=== PATIENT | female | born 1935 | race Caucasian/White ===

== ENCOUNTER 2017-05-17 14:25 | Outpatient (CLI) | payer MEDICARE ==
--- NOTE | 2017-05-17 16:23 | ULT ---
LEFT LOWER EXTREMITY VENOUS ULTRASOUND WITH DOPPLER: HISTORY: Swelling. COMPARISON: None. TECHNIQUE: Bruner scale, color flow, Doppler imaging, with spectral waveform analysis of the left lower extremity system. FINDINGS: There is compressibility, presence of flow, and augmentation in the common femoral vein, femoral vein , and popliteal vein. There is flow in the greater saphenous vein, profunda vein, and percutaneous t ransluminal angioplasty. IMPRESSION: No evidence of thrombus in the left lower extremity deep venous system. POS: [facility]
== END 2017-05-17 14:26 | disposition home or self-care (01) ==
LOC: ULT 14:25
PROVIDERS: ATTEND Specialist
DX: I73.9 Peripheral vascular disease, unspecified (principal)

== ENCOUNTER 2017-06-11 03:14 | Inpatient (IN) | payer MEDICARE ==
[2017-06-11 04:59] LABS: #Eosinphils 0.1 thou/uL (0.0-0.7); #Lymphocytes 1.1 thou/uL (1.20-3.40); #Monocytes 0.8 thou/uL (0.11-0.59); #Neutrophils 3.8 thou/uL (1.40-6.50); %Basophils 0.3 % (0.0-1.0); %Eosinophils 1.3 % (0.0-10.0); %Lymphocytes 19.6 % (21.0-51.0); %Monocytes 13.4 % (0.0-10.0); %Neutrophils 65.5 % (42.0-75.0); Hemoglobin 12.7 g/dL (12.0-16.0); Mean Corpuscular HGB CONC 34.2 g/dL (32.0-36.0); Mean Corpuscular Volume 93.6 fl (81.0-99.0); Mean Platelet Volume 7.4 fL (7.4-10.4); Platelet Count 195 thou/uL (130-400); RBC Distribution Width 12.6 % (11.5-14.5); Red Blood Cell (RBC) Count 3.98 mill/uL (4.20-5.40); White Blood Cell (WBC) Count 5.8 thou/uL (4.8-10.8)
[2017-06-11 05:23] LABS: ALT (SGPT) 19 U/L (8-55); AST (SGOT) 39 U/L (5-34); Albumin 3.9 g/dL (3.4-4.8); Alkaline Phosphatase 61 U/L (40-150); Anion Gap 11 mmol/L (10-20); BUN (Urea Nitrogen) 14 mg/dL (9.8-20.1); Bilirubin, Total 0.4 mg/dL (0.2-1.2); Calc. Creatinine Clearance 0 mL/min (70-130); Calcium 9.3 mg/dL (7.8-10.44); Carbon Dioxide 24 mmol/L (23-31); Chloride 101 mmol/L (98-107); Estimated GFR-MDRD 60; Globulin 2.7 g/dL (2.4-3.5); Glucose 101 mg/dL (83-110); Potassium 4.1 mmol/L (3.5-5.1); Protein, Total 6.6 g/dL (6.0-8.3); Sodium 132 mmol/L (136-145)
[2017-06-11 06:06] LABS: CKMB 5.2 ng/mL (0-6.6); Troponin I 0.034 ng/mL (< 0.028)
[2017-06-11] MEDS ORDERED: Azithromycin 500 MG VIAL ONE (07:28)
[2017-06-11] MEDS ORDERED: Vancomycin HCl 1.25 GM, Admixture Fee 1 EACH in Sodium Chloride 0.9% 250 ML 250 ML IVPB SCH (07:45)
[2017-06-11 07:47] LABS: Troponin I 0.035 ng/mL (< 0.028)
--- NOTE | 2017-06-11 08:07 | RAD ---
FRONTAL VIEW CHEST: Date: 06/11/17 INDICATION: Emergency exam, cough, difficulty breathing. FINDINGS: Reference made to 05/25/16. Elevation of right hemidiaphragm is similar. Cardiac silhouette is prominent. There is mild engorgeme nt of pulmonary vasculature with interstitial prominence bilaterally. Vascular calcifications are pre sent. There are leads overlying the chest limiting detail. IMPRESSION: 1. CHF. 2. Persistent elevation of right hemidiaphragm. POS: [facility]
[2017-06-11] MEDS ORDERED: Ondansetron ODT 4 MG TAB PO PRN ×2 (08:25→12:38)
[2017-06-11] MEDS ORDERED: Ondansetron HCl/PF 4 MG/2 ML Vial IVP PRN (08:25)
[2017-06-11] MEDS ORDERED: Prevnar 13-Val Conj/PF 0.5 ML SYRINGE IM ONE (08:45)
[2017-06-11 08:50] VITALS: BMI 30.3
[2017-06-11 11:01] LABS: Troponin I 0.033 ng/mL (< 0.028)
[2017-06-11] MEDS ORDERED: Diphenoxylate HCl/Atropine Tablet PO PRN (12:13)
[2017-06-11] MEDS ORDERED: Meclizine HCl 12.5 MG TAB PO PRN (12:36)
[2017-06-11] MEDS: Benzonatate 100 MG CAP PO PRN ×2 (13:05→18:53)
--- NOTE | 2017-06-11 13:22 | HP ---
DATE OF ADMISSION: 06/11/2017 CHIEF COMPLAINT ON ADMISSION: Pneumonia. HISTORY OF PRESENT ILLNESS: The patient is an 82-year-old female with dementia, who normally stays a t the residential when was noted to have increasing cough. She was thought to have a sinus infectio n the previous week, so she was begun on a Z-Cesar; however, her cough has persisted. She has become p rogressively short of breath, and she was sent to the emergency room for further evaluation. Arrival in the ER, her pulse ox was 88%, and right after 1 DuoNeb treatment, she quickly zulema to 96%. She h as had a productive cough with green phlegm. Denies fever. She has diffuse pain, and has developed diarrhea, probably as a result of the azithromycin. In the emergency room, her chest x-ray revealed infiltrates leading the ER doctor to admit her under pneumonia. She also had some elevated troponins that was indeterminate in nature. She had recently fallen and scraped her leg, but seemed to be doi ng well with that. PAST MEDICAL HISTORY: Significant for hypothyroidism, hypertension, spinal fracture, wrist fracture, vertigo, dementia, hydrocephalus, GERD, atherosclerotic heart disease. PAST SURGICAL HISTORY: Her surgeries have included shunt placement for the hydrocephalous per Dr. Wilfred simon. ALLERGIES: Include PENICILLIN, KEFLEX, CODEINE and LEVAQUIN. CURRENT LIST OF MEDICATIONS: Include Zofran ODT p.r.n. nausea, Zocor 20 mg at bedtime, vitamin D 100 0 International Units daily, Nexium 40 mg daily, Namenda XR 28 mg daily, meclizine 12.5 mg p.r.n. sandra mckinney, fluticasone nasal spray daily, Aricept 5 mg daily, Colace 100 mg daily, melatonin 5 mg at bed time, sertraline 50 mg daily, levothyroxine 50 mcg daily, metoprolol tartrate 25 mg 1/2 tab b.i.d. REVIEW OF SYSTEMS: Generally, she denies chills or fever. HEENT: Negative for blurred vision, eye pain, or drainage. Nares, negative for discharge or drainage or blood. Pharynx, no sore throat. Ca rdiovascular: Denies chest pain or palpitations. Respiratory: Has significant cough and shortness of breath. Gastrointestinal: Has diarrhea, but denies nausea or vomiting. Genitourinary: Denies b lood in urine or painful urination. Musculoskeletal: Recent fall. Has bruising and pain in the lef t leg. Skin: With abrasion on the left leg, otherwise unremarkable. Neurological: Cranial nerves are intact. Unable to test gait and cerebellar function at this time. Denies areas of numbness or swelling. Lymphatics: Denies swelling, erythema, or heat. Skin: No n ew rashes or lesions, but does have the abrasion on left leg. PHYSICAL EXAMINATION: VITAL SIGNS: On admission, blood pressure 145/77, pulse 96, respirations 22, temperature 99. Pain s chanelle at 10/10 and O2 sat at 94% on 2 liters. GENERAL: This is an elderly female, alert, oriented, and cooperative. HEENT: Normocephalic and atraumatic. Pupils with arcus senilis bilaterally. Pupils equal, round, a nd reactive to light with 2 mm of reactivity, nares and pharynx are clear. There is poor trans[place] of the sinuses. NECK: Supple. CHEST: Clear to auscultation. HEART: Regular rate and rhythm without murmur. BREAST EXAM: Deferred. ABDOMEN: Soft, without organomegaly, nontender. : Deferred. EXTREMITIES: Without clubbing, cyanosis, or edema. Normal range of motion present. SKIN: With the abrasions on the left tobin, otherwise unremarkable. NEUROLOGICAL: Cranial nerves are intact. Gait and cerebellar function untested. Mental status show s recent memory deficits. LABORATORY AND X-RAY FINDINGS: Lab work on admission shows WBCs 5.8, hemoglobin 12.7, hematocrit 37. 2 with platelets at 195. Sodium 132, potassium 4.1, chloride at 101, CO2 of 24, BUN 14, creatinine 0 .9, glucose of 101. Cardiac enzymes are elevated x3, in the indeterminate range. BNP slightly eleva colin at 189. Chest x-ray shows elevated right hemidiaphragm (old) with possible posterior cardiac inf iltrate. Heart size appears enlarged. ASSESSMENT: 1. Early pneumonia and/or possible congestive heart failure. 2. Dementia. 3. Hypoxia secondary to pulmonic process. 4. Status post fall. PLAN: Will be to continue IV antibiotics, and serially reevaluate the patient, get an echocardiogram and reevaluate the patient regularly. We will also do DuoNeb treatments to aid in her oxygen transp ort.
[2017-06-11] MEDS: Fluticasone Propionate Nasal Spray 16 gm Bottle NASAL SCH (19:47)
[2017-06-11] MEDS: Melatonin 3 MG TAB PO SCH (19:48)
[2017-06-11] MEDS: guaiFENesin ER 600 MG TAB PO SCH (19:49)
[2017-06-11] MEDS: Metoprolol Tartrate 25 MG TAB PO SCH (19:49)
[2017-06-12] MEDS: Levothyroxine Sodium 50 MCG TAB PO SCH (05:23)
[2017-06-12 05:33] LABS: #Eosinphils 0.1 thou/uL (0.0-0.7); #Lymphocytes 1.1 thou/uL (1.20-3.40); #Monocytes 0.7 thou/uL (0.11-0.59); #Neutrophils 3.5 thou/uL (1.40-6.50); %Basophils 0.2 % (0.0-1.0); %Lymphocytes 20.6 % (21.0-51.0); %Neutrophils 65.2 % (42.0-75.0); Hemoglobin 12.1 g/dL (12.0-16.0); Mean Corpuscular Hemoglobin 31.9 pg (27.0-31.0); Mean Corpuscular Volume 96.6 fl (81.0-99.0); Mean Platelet Volume 7.9 fL (7.4-10.4); Platelet Count 185 thou/uL (130-400); RBC Distribution Width 12.7 % (11.5-14.5); White Blood Cell (WBC) Count 5.4 thou/uL (4.8-10.8)
[2017-06-12 05:54] LABS: Anion Gap 10 mmol/L (10-20); BUN (Urea Nitrogen) 10 mg/dL (9.8-20.1); Calc. Creatinine Clearance 68 mL/min (70-130); Carbon Dioxide 25 mmol/L (23-31); Chloride 100 mmol/L (98-107); Estimated GFR-MDRD 67; Glucose 102 mg/dL (83-110); Potassium 4.3 mmol/L (3.5-5.1); Sodium 131 mmol/L (136-145)
--- NOTE | 2017-06-12 08:33 | PRG ---
DATE OF SERVICE: 06/12/2017 SUBJECTIVE: The patient had a good night. She is on oxygen. She denies any complaints. Upon evalu ation she is awake, alert to person, place and time. There is no family here. PHYSICAL EXAMINATION: VITAL SIGNS: Blood pressure 130/60, pulse 80. She is afebrile. NECK: Supple, no increased JVP or carotid bruit. Carotid had good upstroke, no thyromegaly. COR: Regular rate and rhythm. CHEST: Symmetrical with bibasilar crackles. ABDOMEN: Soft, nontender with normoactive bowel sounds. No bruit or organomegaly. EXTREMITIES: Trace edema. She had palpable pedal pulses. SKIN: There is no evidence of ulcers, lesion or rash. NEUROLOGIC: She is awake, alert, and oriented to person, place, and time. LABORATORY DATA: Her CBC is normal. Her CMP shows sodium 131. ASSESSMENT: 1. Pneumonia. 2. Respiratory failure, improved. 3. Dementia. 4. History of hydrocephalus with a shunt. PLAN: 1. The patient will be continued the same current medication regime. 2. We will follow up with CBC, CMP and chest x-ray in the morning. 3. Encourage patient to get out of bed into the chair. The patient verbalized understanding. All questions answered to her satisfaction.
[2017-06-12] MEDS ORDERED: Vancomycin HCl 1 GM in Premix Bag 1 BAG IVPB SCH (09:00)
[2017-06-12] MEDS ORDERED: BIOTIN 5000 MCG PO SCH (09:00)
[2017-06-12 09:15] LABS: #Eosinphils 0.1 thou/uL (0.0-0.7); #Lymphocytes 0.9 thou/uL (1.20-3.40); #Monocytes 0.4 thou/uL (0.11-0.59); #Neutrophils 4.2 thou/uL (1.40-6.50); %Basophils 0.1 % (0.0-1.0); %Eosinophils 2.2 % (0.0-10.0); %Lymphocytes 15.5 % (21.0-51.0); %Monocytes 6.7 % (0.0-10.0); %Neutrophils 75.5 % (42.0-75.0); Hemoglobin 13.1 g/dL (12.0-16.0); Mean Corpuscular HGB CONC 34.1 g/dL (32.0-36.0); Mean Corpuscular Hemoglobin 32.3 pg (27.0-31.0); Mean Corpuscular Volume 94.7 fl (81.0-99.0); Mean Platelet Volume 7.4 fL (7.4-10.4); Platelet Count 181 thou/uL (130-400); RBC Distribution Width 12.6 % (11.5-14.5); Red Blood Cell (RBC) Count 4.07 mill/uL (4.20-5.40); White Blood Cell (WBC) Count 5.5 thou/uL (4.8-10.8)
[2017-06-12] MEDS: Azithromycin 500 MG in Sodium Chloride 0.9% 250 ML 250 ML IVPB SCH (09:20)
[2017-06-12] MEDS: Fluticasone Propionate Nasal Spray 16 gm Bottle NASAL SCH ×2 (09:24→20:58)
[2017-06-12] MEDS: Calcium Carbonate + Vit D 1 TAB PO SCH (09:25)
[2017-06-12] MEDS: Metoprolol Tartrate 25 MG TAB PO SCH ×2 (09:26→20:57)
[2017-06-12] MEDS: guaiFENesin ER 600 MG TAB PO SCH ×2 (09:27→20:57)
[2017-06-12] MEDS: Donepezil HCl 5 MG TAB PO SCH (09:27)
[2017-06-12 09:33] LABS: ALT (SGPT) 19 U/L (8-55); AST (SGOT) 45 U/L (5-34); Albumin 3.7 g/dL (3.4-4.8); Alkaline Phosphatase 58 U/L (40-150); Anion Gap 14 mmol/L (10-20); BUN (Urea Nitrogen) 9 mg/dL (9.8-20.1); Bilirubin, Total 0.4 mg/dL (0.2-1.2); Calc. Creatinine Clearance 68 mL/min (70-130); Calcium 9.2 mg/dL (7.8-10.44); Carbon Dioxide 21 mmol/L (23-31); Chloride 100 mmol/L (98-107); Estimated GFR-MDRD 67; Globulin 2.8 g/dL (2.4-3.5); Glucose 144 mg/dL (83-110); Protein, Total 6.5 g/dL (6.0-8.3); Sodium 131 mmol/L (136-145)
--- NOTE | 2017-06-12 11:02 | PQF ---
ANISHA SANTOS MICHAEL E MD [id number] [id number] CLINICAL DOCUMENTATION IMPROVEMENT CLARIFICATION FORM: ICD-10 Updated PLEASE DO AN ADDENDUM TO THE PROGRESS NOTE WITH ANY DOCUMENTATION UPDATES OR ADDITIONS AND CARRY THROUGH TO DC SUMMARY. THANK YOU. DATE: 06-12-17 ATTN: DR. VALERIE RODGERS/ SAGAR ROCHA Please exercise your independent, professional judgment in responding to the clarification form. Clinical indicators are provided on the bottom of this form for your review Please check appropriate box(s): [ ] Empirically treating Gram Negative Pneumonia [ ] Empirically treating Anaerobic Pneumonia [ ] Pneumonia secondary to (specify organism / underlying disease) ____ [ x ] Simple Pneumonia (community acquired - nosocomial) [ ] Pneumonia of unknown etiology [ x ] Other diagnosis ____Hypoxia, failed out patient treatment [ ] Unable to determine For continuity of documentation, please document condition throughout progress notes and discharge summary. Thank You. CLINICAL INDICATORS - SIGNS / SYMPTOMS / LABS ER PDX: PNA; ELEVATED TROPONIN; HYPOXIA H&P: ER PULSE OX 88% - 1 DUONEB TX - 96% - NOW 94% ON 2LNC SIGNIFICANT COUGH AND SHORTNESS OF BREATH PDX: EARLY PNA AND/OR CHF; HYPOXIA D/T PULMONIC PROCESS 4-2 CXR: ER: QUESTIONABLE INFILTRATE ON RETROCARDIAC REGION; QUESTIONABLE FOR PNA MILD ENGORGEMENT OF PULMONARY VASCULATURE W/ INTERSTITIAL PROMINENCE BILATERALLY CHF; PERSISTENT ELEVATION OF RIGHT HEMIDAPHRAGM RISK FACTORS H&P: STAYS IN [facility] PREVIOUS WEEK STARTED ON Z-PATSY FOR SINUS INFECTION PERSISTENT COUGH TREATMENTS: ECHO MAR: ZITHROMAX; VANCOMYCIN IV 4-2 / 4-3 DUONEB TREATMENTS OXYGEN - 2LNC THANK YOU, MUNIRA (This form is maintained as a part of the permanent medical record) 2015 [employer]. All Rights Reserved Munira Morales RN, BS [email or web address] Cell [facility]
--- NOTE | 2017-06-12 11:25 | PQF ---
ANISHA SANTOS MICHAEL E MD [id number] CLINICAL DOCUMENTATION IMPROVEMENT CLARIFICATION FORM: ICD-10 Updated PLEASE DO AN ADDENDUM TO THE PROGRESS NOTE WITH ANY DOCUMENTATION UPDATES OR ADDITIONS AND CARRY THROUGH TO DC SUMMARY. THANK YOU. DATE: 06-12-17 ATTN: DR. VALERIE RODGERS / SAGAR ROCHA Please exercise your independent, professional judgment in responding to the clarification form. Clinical indicators are provided on the bottom of this form for your review Please check appropriate box(s): [ x ] Acute Respiratory Failure: [ x ] with Hypoxia [ ] with Hypercapnia [ x] Acute Respiratory Failure due to PNA [ x ] Other diagnosis ___outpatient treatment failure [ ] Unable to determine For continuity of documentation, please document condition throughout progress notes and discharge summary. Thank You. CLINICAL INDICATORS - SIGNS / SYMPTOMS / LABS ER PDX: PNA; ELEVATED TROPONIN; HYPOXIA BREATH SOUNDS DIMINISHED TO RLL W/ CRACKLES ; TACHYPNEIC H&P: ER PULSE OX 88% ON ARRIVAL TO ER - 1 DUONEB TX - 96% - NOW 94% ON 2LNC SIGNIFICANT COUGH AND SHORTNESS OF BREATH PDX: EARLY PNA AND/OR CHF; HYPOXIA D/T PULMONIC PROCESS 4-2 CXR: ER: QUESTIONABLE INFILTRATE ON RETROCARDIAC REGION; QUESTIONABLE FOR PNA MILD ENGORGEMENT OF PULMONARY VASCULATURE W/ INTERSTITIAL PROMINENCE BILATERALLY CHF; PERSISTENT ELEVATION OF RIGHT HEMIDAPHRAGM 4-3 PN SAGAR ROCHA: RESPIRATORY FAILURE - IMPROVED RISK FACTORS H&P: STAYS IN [facility]IOR [facility]IV[facility] PREVIOUS WEEK STARTED ON Z-PATSY FOR SINUS INFECTION PERSISTENT COUGH TREATMENTS: ECHO MAR: ZITHROMAX; VANCOMYCIN IV 4-2 / 4-3 DUONEB TREATMENTS OXYGEN - 2LNC THANK YOU, MUNIRA (This form is maintained as a part of the permanent medical record) 2015 [email or web address]. All Rights Reserved Munira Morales RN, BS [email or web address] Cell [facility]
[2017-06-12] MEDS: Benzonatate 100 MG CAP PO PRN (20:56)
[2017-06-12] MEDS: Melatonin 3 MG TAB PO SCH (20:57)
[2017-06-13 04:55] LABS: #Eosinphils 0.1 thou/uL (0.0-0.7); #Lymphocytes 0.9 thou/uL (1.20-3.40); #Monocytes 0.6 thou/uL (0.11-0.59); %Basophils 0.3 % (0.0-1.0); %Eosinophils 2.4 % (0.0-10.0); %Lymphocytes 16.5 % (21.0-51.0); %Monocytes 10.6 % (0.0-10.0); %Neutrophils 70.3 % (42.0-75.0); Hemoglobin 12.1 g/dL (12.0-16.0); Mean Corpuscular HGB CONC 33.2 g/dL (32.0-36.0); Mean Corpuscular Hemoglobin 31.3 pg (27.0-31.0); Mean Corpuscular Volume 94.1 fl (81.0-99.0); Mean Platelet Volume 7.3 fL (7.4-10.4); Platelet Count 200 thou/uL (130-400); RBC Distribution Width 12.6 % (11.5-14.5); Red Blood Cell (RBC) Count 3.86 mill/uL (4.20-5.40); White Blood Cell (WBC) Count 5.7 thou/uL (4.8-10.8)
[2017-06-13 05:04] LABS: ALT (SGPT) 18 U/L (8-55); AST (SGOT) 40 U/L (5-34); Albumin 3.5 g/dL (3.4-4.8); Alkaline Phosphatase 49 U/L (40-150); Anion Gap 12 mmol/L (10-20); BUN (Urea Nitrogen) 8 mg/dL (9.8-20.1); Bilirubin, Total 0.5 mg/dL (0.2-1.2); Calc. Creatinine Clearance 72 mL/min (70-130); Calcium 9.3 mg/dL (7.8-10.44); Carbon Dioxide 25 mmol/L (23-31); Chloride 97 mmol/L (98-107); Estimated GFR-MDRD 72; Globulin 2.7 g/dL (2.4-3.5); Glucose 108 mg/dL (83-110); Potassium 4.1 mmol/L (3.5-5.1); Protein, Total 6.2 g/dL (6.0-8.3); Sodium 130 mmol/L (136-145)
[2017-06-13] MEDS: Levothyroxine Sodium 50 MCG TAB PO SCH (06:06)
[2017-06-13] MEDS: Azithromycin 500 MG in Sodium Chloride 0.9% 250 ML 250 ML IVPB SCH (08:13)
[2017-06-13] MEDS: Azithromycin 250 MG TAB PO SCH (08:25)
[2017-06-13] MEDS: Metoprolol Tartrate 25 MG TAB PO SCH ×2 (08:26→20:08)
[2017-06-13] MEDS: guaiFENesin ER 600 MG TAB PO SCH ×2 (08:26→20:07)
[2017-06-13] MEDS: Calcium Carbonate + Vit D 1 TAB PO SCH (08:28)
[2017-06-13] MEDS: Fluticasone Propionate Nasal Spray 16 gm Bottle NASAL SCH ×2 (08:33→20:08)
[2017-06-13] MEDS: Donepezil HCl 5 MG TAB PO SCH (08:33)
--- NOTE | 2017-06-13 13:25 | RAD ---
CHEST ONE VIEW: HISTORY: Dyspnea. Pneumonia. COMPARISON: 05/15/2016 and 06/11/2017 FINDINGS: The cardiac silhouette remains predominantly obscured by an elevated and lobulated right hemidiaphrag m. The mediastinum is shifted leftward, stable. Calcification in the aorta. Subtle patchy infiltra te throughout the left lung involves primarily the left lower lobe and may be related to pulmonary va scular congestion that has increased. Ventriculoperitoneal shunt partially visualized. IMPRESSION: Increasing pulmonary vascular congestion. Other findings are stable. POS: [facility]
[2017-06-13] MEDS: Melatonin 3 MG TAB PO SCH (20:07)
[2017-06-13] MEDS: Acetaminophen 325 MG TAB PO PRN (20:07)
[2017-06-14 05:23] LABS: #Eosinphils 0.3 thou/uL (0.0-0.7); #Lymphocytes 1.3 thou/uL (1.20-3.40); #Monocytes 0.6 thou/uL (0.11-0.59); #Neutrophils 3.3 thou/uL (1.40-6.50); %Basophils 0.7 % (0.0-1.0); %Lymphocytes 23.3 % (21.0-51.0); %Monocytes 11.6 % (0.0-10.0); %Neutrophils 59.4 % (42.0-75.0); Hemoglobin 12.2 g/dL (12.0-16.0); Mean Corpuscular HGB CONC 33.8 g/dL (32.0-36.0); Mean Corpuscular Hemoglobin 32.7 pg (27.0-31.0); Mean Corpuscular Volume 96.8 fl (81.0-99.0); Mean Platelet Volume 7.4 fL (7.4-10.4); Platelet Count 225 thou/uL (130-400); RBC Distribution Width 12.6 % (11.5-14.5); Red Blood Cell (RBC) Count 3.72 mill/uL (4.20-5.40); White Blood Cell (WBC) Count 5.5 thou/uL (4.8-10.8)
[2017-06-14 05:31] LABS: Anion Gap 9 mmol/L (10-20); BUN (Urea Nitrogen) 11 mg/dL (9.8-20.1); Calc. Creatinine Clearance 68 mL/min (70-130); Calcium 9.3 mg/dL (7.8-10.44); Carbon Dioxide 29 mmol/L (23-31); Chloride 98 mmol/L (98-107); Estimated GFR-MDRD 67; Glucose 99 mg/dL (83-110); Potassium 4.2 mmol/L (3.5-5.1); Sodium 132 mmol/L (136-145)
[2017-06-14] MEDS: Levothyroxine Sodium 50 MCG TAB PO SCH (05:52)
[2017-06-14] MEDS: guaiFENesin ER 600 MG TAB PO SCH ×2 (08:09→20:43)
[2017-06-14] MEDS: Metoprolol Tartrate 25 MG TAB PO SCH ×2 (08:10→20:43)
[2017-06-14] MEDS: Calcium Carbonate + Vit D 1 TAB PO SCH (08:10)
[2017-06-14] MEDS: Donepezil HCl 5 MG TAB PO SCH (08:10)
[2017-06-14] MEDS: Azithromycin 250 MG TAB PO SCH (08:11)
[2017-06-14] MEDS: Fluticasone Propionate Nasal Spray 16 gm Bottle NASAL SCH ×2 (08:13→20:44)
--- NOTE | 2017-06-14 08:22 | PRG ---
DATE OF SERVICE: 06/14/2017 SUBJECTIVE: The patient is weak. She does not have physical therapy ordered. She has been up in th e chair. She is on oxygen. She is eating breakfast. On my evaluation she is awake, alert, and orie nted. PHYSICAL EXAMINATION: VITAL SIGNS: Blood pressure is not taken yet. NECK: Supple with no increased JVP or carotid bruit. Carotid upstroke with no thyromegaly. COR: Regular rhythm. CHEST: She has a few bibasilar crackles. ABDOMEN: Soft, nontender, normal bowel sounds. No bruit or organomegaly. EXTREMITIES: No edema or cyanosis. She had palpable pedal pulses. SKIN: There is no evidence of ulceration, lesion or rash. NEUROLOGIC: She is awake and alert and oriented. ASSESSMENT: 1. Pneumonia. 2. Respiratory failure. 3. Dementia. 4. Multiple medical problems. PLAN: 1. We will get physical therapy to see the patient in consultation. 2. We will wean oxygen off. 3. We will give a little bit of prednisone and hopefully will be able to go back to assisted living tomorrow.
[2017-06-14] MEDS: predniSONE 5 MG TAB PO SCH (08:55)
[2017-06-14] MEDS: Acetaminophen 325 MG TAB PO PRN (14:47)
[2017-06-14] MEDS: Melatonin 3 MG TAB PO SCH (20:43)
[2017-06-15] MEDS: Levothyroxine Sodium 50 MCG TAB PO SCH (05:25)
[2017-06-15] MEDS: Calcium Carbonate + Vit D 1 TAB PO SCH (09:14)
[2017-06-15] MEDS: guaiFENesin ER 600 MG TAB PO SCH (09:14)
[2017-06-15] MEDS: Azithromycin 250 MG TAB PO SCH (09:14)
[2017-06-15] MEDS: predniSONE 5 MG TAB PO SCH (09:14)
[2017-06-15] MEDS: Donepezil HCl 5 MG TAB PO SCH (09:14)
[2017-06-15] MEDS: Metoprolol Tartrate 25 MG TAB PO SCH (09:15)
[2017-06-15] MEDS: Fluticasone Propionate Nasal Spray 16 gm Bottle NASAL SCH (09:22)
[2017-06-15 11:12] VITALS: BP 133/75; TEMP 98
--- NOTE | 2017-06-15 13:07 | DIS ---
Torie Marie, MERT-C dictating for Dr. Brien Edmond. DATE OF DISCHARGE: 06/15/2017 FINAL DIAGNOSES: 1. Pneumonia. 2. Dementia. 3. Hypertension. 4. Depression. 5. Respiratory failure. 6. Hyponatremia. COMPLICATIONS: None. PROCEDURES: None. CONSULTANTS: None. HOSPITAL COURSE: This is a pleasant female, who presented to the hospital with cough and increasing shortness of breath. She did have a chest x-ray in the emergency room that showed congestive heart f ailure and persistent elevation of right hemidiaphragm; however, her BNP was normal. We also ordered echocardiogram. The patient's EF was normal at 55%-60%. She had [id number] mitral regurgitat ion, moderate aortic regurgitation. The patient was started on antibiotics. Her home medications we re resumed. The patient had a breathing treatment. She had physical therapy to see the patient in c onsultation. The patient's IV antibiotics were eventually switched to by mouth. The patient progres sed nicely throughout the hospitalization. She was breathing okay. Her vital signs were stable. Sh e had no complaints. Her labs, CBC remained normal. Her sodium came up to 132. Her BUN and creatin ine were normal. Her last chest x-ray showed increasing pulmonary vascular congestion. It was felt the patient had more of pneumonia versus congestive heart failure. The patient was felt to be dismis sed, so she will be going to [facility] where she would continue a controlled fat diet. ACTIVITY: She will have physical therapy and occupational therapy to work with her. DISCHARGE MEDICATIONS: Included, 1. Sertraline 50 mg every day. 2. Tylenol p.r.n. 3. Flonase b.i.d. 4. Levothyroxine 50 mcg every day. 5. Melatonin 10 mg at night. 6. Namenda 10 mg b.i.d. 7. Metoprolol 12.5 mg b.i.d. 8. Zithromax 250 mg until she runs out. 9. Biotin 5000 mg every day. 10. Calcium carbonate every day. 11. All Day Allergy 10 mg every day. 12. Vitamin D3 1000 units every day. 13. Colace 100 mg every day. 14. Aricept 5 mg every day. 15. Meclizine 12.5 mg t.i.d. p.r.n. 16. She will also have Zofran 4 mg q.4 hours p.r.n. nausea and vomiting. FOLLOWUP: She will see Torie in 1 week or prior to that if she has any complications. The amy horn verbalized understanding. All questions answered to her satisfaction.
--- NOTE | 2017-06-18 15:47 | EKG ---
Test Reason : Blood Pressure : / mmHG Vent. Rate : 092 BPM Atrial Rate : 092 BPM P-R Int : 150 ms QRS Dur : 084 ms QT Int : 362 ms P-R-T Axes : 041 -31 000 degrees QTc Int : 447 ms Normal sinus rhythm Possible Left atrial enlargement Left axis deviation Left ventricular hypertrophy Abnormal ECG Confirmed by REBECCA ARAUZ M.D. ([id number]), advertising editor WHITNEY SULLIVAN ([id number]) on 06/18/2017 3:46:25 PM Referred By: Confirmed By:REBECCA ARAUZ M.D.
== END 2017-06-15 11:47 | DRG 193 ==
LOC: ERS 03:14 → 2SW 06:28 → OBSVTOIN 12:34 → T4-A 06-12 19:41
PROVIDERS: ADMIT Specialist; ATTEND Specialist
DX: J18.9 Pneumonia, unspecified organism (principal); J96.01 Acute respiratory failure with hypoxia; E87.1 Hypo-osmolality and hyponatremia; F03.90 Unspecified dementia, unspecified severity, without behavioral disturbance, psychotic disturbance, mood disturbance, and anxiety; E03.9 Hypothyroidism, unspecified; I10 Essential (primary) hypertension; K21.9 Gastro-esophageal reflux disease without esophagitis; I25.10 Atherosclerotic heart disease of native coronary artery without angina pectoris; Z88.1 Allergy status to other antibiotic agents; Z88.5 Allergy status to narcotic agent; Z88.0 Allergy status to penicillin; Z79.899 Other long term (current) drug therapy
CPT/HCPCS: 36415; 71045; 71046; 80048; 80053; 82553; 83880; 84484; 85025; 87040; 93005; 93306; 94640; 96374; A4216; G8978-GP-CM; G8979-GP-CK; J0456; J3370; J7050; J7620

== ENCOUNTER 2017-07-21 06:21 | Inpatient (IN) | payer MEDICARE ==
[2017-07-21 07:20] LABS: #Eosinphils 0.4 thou/uL (0.0-0.7); #Monocytes 0.6 thou/uL (0.11-0.59); #Neutrophils 4.1 thou/uL (1.40-6.50); %Basophils 0.5 % (0.0-1.0); %Eosinophils 6.6 % (0.0-10.0); %Monocytes 9.5 % (0.0-10.0); %Neutrophils 66.5 % (42.0-75.0); Hemoglobin 12.8 g/dL (12.0-16.0); Mean Corpuscular HGB CONC 32.8 g/dL (32.0-36.0); Mean Corpuscular Hemoglobin 31.6 pg (27.0-31.0); Mean Corpuscular Volume 96.3 fl (81.0-99.0); Mean Platelet Volume 7.1 fL (7.4-10.4); Platelet Count 254 thou/uL (130-400); RBC Distribution Width 13.5 % (11.5-14.5); Red Blood Cell (RBC) Count 4.06 mill/uL (4.20-5.40); White Blood Cell (WBC) Count 6.2 thou/uL (4.8-10.8)
[2017-07-21 07:43] LABS: CKMB 1.9 ng/mL (0-6.6)
[2017-07-21 07:44] LABS: ALT (SGPT) 11 U/L (8-55); AST (SGOT) 21 U/L (5-34); Albumin 3.8 g/dL (3.4-4.8); Alkaline Phosphatase 60 U/L (40-150); Anion Gap 10 mmol/L (10-20); BUN (Urea Nitrogen) 8 mg/dL (9.8-20.1); Bilirubin, Total 0.4 mg/dL (0.2-1.2); CK (CPK) 190 U/L (29-168); Calc. Creatinine Clearance 0 mL/min (70-130); Calcium 9.6 mg/dL (7.8-10.44); Carbon Dioxide 24 mmol/L (23-31); Chloride 101 mmol/L (98-107); Estimated GFR-MDRD 73; Globulin 2.7 g/dL (2.4-3.5); Glucose 96 mg/dL (83-110); Lipase 34 U/L (8-78); Potassium 4.7 mmol/L (3.5-5.1); Protein, Total 6.5 g/dL (6.0-8.3); Sodium 130 mmol/L (136-145)
--- NOTE | 2017-07-21 08:01 | RAD ---
ONE VIEW CHEST: COMPARISON: 06/11/17. HISTORY: Dyspnea. FINDINGS: Portable upright chest demonstrates a left-sided internal jugular central venous catheter with the di stal tip projecting over the inferior aspect of the right atrium. There is atherosclerosis of the ao rta. Pulmonary vessels are within normal limits. Costophrenic angles are clear. Elevation of the r ight hemidiaphragm is again noted. No pneumothorax. IMPRESSION: 1. Atherosclerosis. 2. Pulmonary vascular prominence. Correlate for volume overload. 3. Chronic elevation of the right hemidiaphragm. POS: [facility]
--- NOTE | 2017-07-21 09:15 | CT ---
CT ANGIOGRAM OF THE CHEST: HISTORY: Chest pain. Evaluate for pulmonary artery embolism. COMPARISON: None. TECHNIQUE: CT angiogram of the chest is performed in the axial plane. Three-dimensional reformatted images are submitted for interpretation. FINDINGS: Trachea and central bronchi are patent. There are patchy interstitial and ground-glass opacities due to edema or infiltrate. Components of atelectasis are suspected given the overall decreased lung vo lumes. Visualized upper solid organs are unremarkable. There appears to be a catheter within the upper abdominal mesentery of uncertain etiology and signifi cance. Note is made of a moderate hiatal hernia, incompletely evaluated. Limited evaluation of the aorta due to lack of contrast opacification. No evidence of aortic aneurys m. No mediastinal mass, lymphadenopathy, or hematoma. Heart size is normal. NO pericardial effusio n. There is adequate contrast opacification of the pulmonary arterial system to the level of the seg mental arteries. No filling defect to suggest thromboembolism. There appears to be a severe chronic compression fracture involving the T12 level. IMPRESSION: 1. No evidence of pulmonary artery embolism to the level of the segmental arteries. 2. Hiatal hernia. POS: [facility]
[2017-07-21 10:06] LABS: Troponin I 0.161 ng/mL (< 0.028)
[2017-07-21] MEDS ORDERED: Nitroglycerin 2% Ointment 1 INCH/1 GM Packet ONE (10:20)
[2017-07-21] MEDS ORDERED: Furosemide 40 MG/4 ML VIAL ONE (10:20)
[2017-07-21] MEDS ORDERED: Enoxaparin Sodium 80 MG/0.8 ML SYRINGE ONE (10:20)
--- NOTE | 2017-07-21 12:54 | HP ---
DATE OF ADMISSION: 07/21/2017 CHIEF COMPLAINT: Chest pain. HISTORY OF PRESENT ILLNESS: The patient is an 82-year-old [facility] patient with skye ia who for 2 days has had left-sided chest pain. Deep breaths and movement did not make much differe nce. Finally, she was brought to the emergency room for further evaluation. There she was notified to have indeterminate troponin levels, but the levels were increasing and on the basis of that she is put in for further observation. She is still a FULL CODE per her family. With this chest pain, the re is no radiation of pain, no dyspnea, shortness of breath, diaphoresis, nausea or vomiting. Distal septum on the left pectoral area, not reproducible by palpation. EKG is not showing acute findings, but as mentioned previously, we are looking at elevated troponin levels. PAST MEDICAL HISTORY: Significant for the aforementioned dementia. She also has a history of spinal fracture, wrist fracture, vertigo, hydrocephalus, GERD, atherosclerotic heart disease, hypothyroidis m, depression, and insomnia as well as constipation. Most recent hospitalization was in 06/2017 for pneumonia. PAST SURGICAL HISTORY: Includes shunt placement for the hydrocephalus per Dr. Cespedes. ALLERGIES: Include PENICILLIN, KEFLEX, CODEINE, and LEVAQUIN. CURRENT LIST OF MEDICINES: Include Zocor 20 mg at bedtime, vitamin D 1000 q. day, Nexium 40 mg q. da y, Namenda XR 28 mg q. day, Aricept 5 mg at bedtime, meclizine p.r.n. dizziness, fluticasone nasal sp ray daily, Colace 100 mg daily, melatonin 5 mg at bedtime, sertraline 50 mg daily, Levothyroxine 50 m cg daily, and metoprolol tartrate 25 mg 1-03/13 tab b.i.d. REVIEW OF SYSTEMS: GENERAL: Denies fever, chills, or coughing. HEENT: No nasal drainage, cough discharge, blurred vision or painful lesions in the mouth. NECK: Denies pain or soreness with range of motion. CHEST: Denies cough or dyspnea. CARDIOVASCULAR: Positive for left-sided chest pain, denies palpitations. ABDOMEN: Denies nausea, vomiting, diarrhea. EXTREMITIES: Denies painful urination, blood in urine or frequency. MUSCULOSKELETAL: Denies pain and aches in joints at this time. SKIN: She denies rash, lesions, or pruritus. NEUROLOGIC: She is confused with significantly impaired short term and intermediate accountant memory. PHYSICAL EXAMINATION: At the time of admission, GENERAL: This is an elderly female in no acute distress, alert, cooperative. HEENT: Normocephalic and atraumatic. Pupils equal, round, and reactive to light. Extraocular muscl es are intact. Arcus senilis bilaterally. TMs, nares, pharynx are clear with moist membranes. NECK: Supple, trachea midline. No adenopathy or tenderness. CHEST: Clear to auscultation. BREAST: Not examined. HEART: Regular rate and rhythm, no murmurs. ABDOMEN: Soft, nontender, without organomegaly. : Not examined. EXTREMITIES: With mild trace edema bilaterally that is tender to exam. Range of motion is adequate. SKIN: Without acute rashes or lesions. NEUROLOGIC: Unable to test gait and cerebellar function at this time. Sensory exam is grossly intac t. MENTAL STATUS: Altered with impaired short term and skilled nursing memory. Cranial nerves are intact. LABORATORY WORK ON ADMISSION: Shows WBC 6.2, hemoglobin 12.8, hematocrit 39.1 with platelets are 254 . Sodium 130, potassium 4.7, chloride 101, CO2 of 24, BUN 8, creatinine 0.7 with a glucose of 96. D -dimer elevated at 0.[address] angio of the chest failed to show any pulmonary emboli. Troponins farmer ve been increasing from 0.04-0.16. BNP slightly elevated at 262. Chest x-ray shows atherosclerosis, pulmonary vascular prominence, and elevated right diaphragm. ASSESSMENT: 1. Chest pain, atypical, and doubt cardiac. 2. Dementia. 3. Hyperlipidemia. 4. Hyponatremia. PLAN: The plan is to finish doing cardiac enzymes. Cardiology consultation was [facility] and serial reevaluation.
[2017-07-21] MEDS ORDERED: Acetaminophen 325 MG TAB PO PRN (13:03)
[2017-07-21] MEDS ORDERED: Sodium Chloride 0.9% 1,000 ML IV SCH (13:15)
[2017-07-21] MEDS ORDERED: ISOVUE-370 76%-LOCM 1 ML ONE (13:23)
[2017-07-21 14:12] LABS: Troponin I 0.957 ng/mL (< 0.028)
[2017-07-21] MEDS ORDERED: Clopidogrel Bisulfate 300 MG TAB PO SCH (18:45)
[2017-07-21] MEDS ORDERED: Aspirin 81 mg Enteric Coated Tablet PO SCH (19:00)
[2017-07-21] MEDS: Enoxaparin Sodium 80 MG/0.8 ML SYRINGE SC SCH (20:45)
[2017-07-21] MEDS: Melatonin 3 MG TAB PO SCH (20:46)
[2017-07-21] MEDS: Nystatin Powder 15 GM BOT TOP SCH (20:46)
[2017-07-21] MEDS: Donepezil HCl 10 MG TAB PO SCH (20:47)
[2017-07-21] MEDS: Metoprolol Tartrate 25 MG TAB PO SCH (20:47)
[2017-07-21] MEDS: Simvastatin 20 MG TAB PO SCH (20:47)
--- NOTE | 2017-07-21 22:54 | CON ---
DATE OF CONSULTATION: 07/21/2017 REASON FOR CONSULTATION: Non-ST elevation myocardial infarction. HISTORY OF PRESENT ILLNESS: Ms. Mariaelena Paulino is a very pleasant 82-year-old woman with the above l isted problem. The patient was at her residence at [facility] when she had the onset of pressure in the middle of her chest. She said it is nothing she has ever had before. The discomfort worsens and she was brought to the emergency room. The pain was relieved here. The cardiac enzymes were initially negative, but the followups have been in the positive range as will be outlined below . She is feeling well now. She received enoxaparin in the emergency room. PAST MEDICAL HISTORY: Dementia. She has hydrocephalus and that was treated. History of spinal frac ture. PAST SURGICAL HISTORY: Shunt placement for hydrocephalus by Dr. Cespedes that improved her dementia , early stabilized it. ALLERGIES: PENICILLIN, KEFLEX, CODEINE, LEVAQUIN. MEDICATIONS PRIOR TO ADMISSION: Zocor, vitamin D, Nexium, Namenda, Aricept, melatonin, levothyroxine , metoprolol. REVIEW OF SYSTEMS: Constitutional: No significant weight gain or loss. Vision: No changes. Heari ng: No changes. Pulmonary: No cough or wheezing. Gastrointestinal: No nausea, vomiting, diarrhea . Skin: No rashes. Neurologic: No unilateral weakness or numbness. Psychiatric: No unusual depr ession or anxiety. Hematologic: No unusual bruising. Genitourinary: No burning with urination. PHYSICAL EXAMINATION: GENERAL: She is a pleasant elderly woman. She is oriented to being at [facility]. She kno ws her family. She recalls the chest discomfort clearly. Her family says that this is her baseline where she always recognizes them. VITAL SIGNS: Her blood pressure 142/64, pulse 70. HEENT: Sclerae nonicteric. Mouth mucous membranes moist. NECK: Supple, no lymphadenopathy. LUNGS: Clear, no wheezing, rales or rhonchi. CARDIAC: Normal S1, normal S2. There is no murmur, rub or gallop. ABDOMEN: Soft, nontender. EXTREMITIES: No clubbing, cyanosis or edema. She has good dorsalis pedis pulse in the right, good p osterior tibial pulse on the left. EKG, no acute changes, no ST changes. LABORATORY AND X-RAY FINDINGS: Cardiac enzymes, the initial enzymes were negative 0.040 then 0.161 a nd followup was 0.957. Sodium is 130, potassium 4.7. ASSESSMENT: 1. Status post non-ST elevation myocardial infarction. 2. Dementia, appears stabilized. 3. Hypercholesterolemia. LDL cholesterol was 190 in 12/2016. PLAN: 1. Echocardiogram to be done. 2. We will anticoagulate with Lovenox. 3. Give her aspirin and Plavix. 4. I discussed conservative therapy versus invasive cardiac therapy. The family has not made a deci maryjo at this time. The patient has some understanding of what we were talking about, but does not co mpletely grasp this. We will rediscuss tomorrow. I think either way it would be reasonable. Cathet erization would be reasonable or conservative medical therapy based on empiric therapy alone would be reasonable. The family is undecided at this point, would not think the patient is a candidate for surgery with he r distant degree of dementia.
--- NOTE | 2017-07-21 22:55 | ULT ---
DOPPLER VENOUS ULTRASOUND OF THE LEFT LOWER EXTREMITY: 07/21/17 INDICATION: Left lower extremity redness, tenderness and warmth. TECHNIQUE: Bruner scale, color doppler and vascular duplex with spectral analysis was performed of the deep venous structures of the left lower extremity. Common femoral vein, superficial femoral vein, popliteal vei n, posterior tibial vein, proximal greater saphenous and profunda veins were assessed. FINDINGS: Normal compression, flow, and augmentation seen within the deep venous structures of the left lower e xtremity. IMPRESSION: No evidence of DVT to the left lower extremity. POS: [facility]
[2017-07-22] MEDS: Levothyroxine Sodium 50 MCG TAB PO SCH (05:25)
[2017-07-22 07:28] LABS: Anion Gap 13 mmol/L (10-20); BUN (Urea Nitrogen) 10 mg/dL (9.8-20.1); Calc. Creatinine Clearance 65 mL/min (70-130); Calcium 9.9 mg/dL (7.8-10.44); Carbon Dioxide 27 mmol/L (23-31); Cardiac Risk 2.3 (Less than 4.5); Chloride 98 mmol/L (98-107); Cholesterol 193 mg/dl (< 200 Desired); Estimated GFR-MDRD 68; Glucose 92 mg/dL (83-110); HDL Cholesterol 85 mg/dL (>60 Neg Risk); LDL Cholesterol, Calculated 96 mg/dL; Potassium 4.2 mmol/L (3.5-5.1); Sodium 134 mmol/L (136-145); Triglycerides 58 mg/dL (Less than 150)
--- NOTE | 2017-07-22 09:05 | PDOC.CTH ---
Cardiology Progress Note - Subjective Awake, preparing for echocardiogram. Denies any further chest pain/discomfort. Denies shortness of breath. Denies nausea/vomiting/diarrhea. Has pain to left lower leg, describes as "tender". No overnight events, no cardiac events. Discussed cardiac catheterization, questions asked/answered. Family arriving later. - Objective Vital Signs Temp Pulse Resp BP Pulse Ox 07/22/17 04:00 97.6 F 67 18 160/66 H 93 L 07/22/17 00:00 97.3 F L 70 20 153/67 H 94 L Weight 171 lb 6.4 oz 07/21/17 07/22/17 07/23/17 06:59 06:59 06:59 Intake Total 820 Output Total 1530 Balance -710 - Physical Examination General/Neuro: NAD, other: (Oriented to person, place. Pleasant, cooperative.) Neck: no JVD present Lungs: CTA, unlabored respirations Heart: RRR Abdomen: NT/ND Other PE findings: LLE s/ edema, erythema, no s&s of inflammation - Telemetry Telemetry Rhythm: SR 60 - Labs Result Diagrams: 07/21/17 07:09 07/22/17 06:52 Troponin/CKMB CK-MB (CK-2) 1.9 ng/mL (0-6.6) 07/21/17 07:09 Troponin I 0.957 ng/mL (< 0.028) H* 07/21/17 13:29 - Assessment/Plan 1.S/P NSTEMI-max trop 0.957, chest pain free currently, no recurrence. Plan for [facility] tomorrow. 2.CHF exacerbation-Echo pending, likely diastolic dysfunction. BNP 262 3.Hyperlipidemia-LDL this am 96, cont statin 4.Dementia-stable, at baseline 5.Elevated D-Dimer-0.63, CTA negative for PE. 6.Left leg pain-U/S negative for DVT, no S&S of inflammation, cellulitis
[2017-07-22] MEDS: Aspirin 81 mg Enteric Coated Tablet PO SCH (09:46)
[2017-07-22] MEDS: Clopidogrel Bisulfate 75 MG TAB PO SCH (09:46)
[2017-07-22] MEDS: Metoprolol Tartrate 25 MG TAB PO SCH ×2 (09:47→20:45)
[2017-07-22] MEDS: Enoxaparin Sodium 80 MG/0.8 ML SYRINGE SC SCH (09:47)
[2017-07-22] MEDS: Docusate 100 MG CAP PO SCH (09:47)
[2017-07-22] MEDS: Nystatin Powder 15 GM BOT TOP SCH ×2 (09:48→20:47)
[2017-07-22] MEDS ORDERED: Communication Order-Pharmacy FS SCH (16:15)
--- NOTE | 2017-07-22 16:25 | PRG ---
DATE OF SERVICE: 07/22/2017 SUBJECTIVE: Ms. Paulino is doing well. No chest pain or pressure overnight. Feeling well. OBJECTIVE: VITAL SIGNS: Blood pressure is somewhat elevated 146/67, pulse 75 regular, blood pressure earlier, h owever, was very high with 214/96. LUNGS: Clear. CARDIAC: Normal S1, normal S2. ABDOMEN: Soft, nontender. EXTREMITIES: There is no edema. Echocardiogram showed normal left ventricular systolic function, moderate mitral and aortic insuffici ency. CONCLUSION: 1. Status post non-ST elevation myocardial infarction. 2. Hypertension. PLAN: Discussed cardiac catheterization. Discussed risks of stroke, heart attack, iodine allergy, l oss of blood supply to leg or kidney, stent thrombosis, stent restenosis. The patient's family agree and wish to proceed. They do not wish to have surgery, but they would be amenable to percutaneous t herapy, understanding there is some risk of needing go to surgery in this as a last resort and in the situation of catheterization or percutaneous therapy. We will proceed tomorrow as is planned.
[2017-07-22] MEDS ORDERED: Losartan 25 MG TAB PO SCH (16:30)
[2017-07-22] MEDS: Donepezil HCl 10 MG TAB PO SCH (20:45)
[2017-07-22] MEDS: Melatonin 3 MG TAB PO SCH (20:45)
[2017-07-22] MEDS: Simvastatin 20 MG TAB PO SCH (20:45)
[2017-07-23 04:45] LABS: #Eosinphils 0.4 thou/uL (0.0-0.7); #Lymphocytes 1.5 thou/uL (1.20-3.40); #Monocytes 0.7 thou/uL (0.11-0.59); #Neutrophils 3.9 thou/uL (1.40-6.50); %Basophils 0.3 % (0.0-1.0); %Lymphocytes 23.4 % (21.0-51.0); %Neutrophils 60.3 % (42.0-75.0); Hemoglobin 12.9 g/dL (12.0-16.0); Mean Corpuscular HGB CONC 33.2 g/dL (32.0-36.0); Mean Corpuscular Hemoglobin 31.3 pg (27.0-31.0); Mean Corpuscular Volume 94.4 fl (81.0-99.0); Mean Platelet Volume 7.6 fL (7.4-10.4); Platelet Count 257 thou/uL (130-400); RBC Distribution Width 13.3 % (11.5-14.5); Red Blood Cell (RBC) Count 4.11 mill/uL (4.20-5.40); White Blood Cell (WBC) Count 6.5 thou/uL (4.8-10.8)
[2017-07-23 04:57] LABS: Anion Gap 12 mmol/L (10-20); BUN (Urea Nitrogen) 11 mg/dL (9.8-20.1); Calc. Creatinine Clearance 68 mL/min (70-130); Carbon Dioxide 21 mmol/L (23-31); Chloride 97 mmol/L (98-107); Estimated GFR-MDRD 71; Glucose 92 mg/dL (83-110); Sodium 126 mmol/L (136-145)
[2017-07-23] MEDS: Levothyroxine Sodium 50 MCG TAB PO SCH (06:02)
[2017-07-23] MEDS: Losartan 25 MG TAB PO SCH (06:03)
[2017-07-23] MEDS: Metoprolol Tartrate 25 MG TAB PO SCH ×2 (06:04→21:16)
[2017-07-23] MEDS: Aspirin 81 mg Enteric Coated Tablet PO SCH (06:04)
[2017-07-23] MEDS: Clopidogrel Bisulfate 75 MG TAB PO SCH (06:04)
[2017-07-23] MEDS: Sodium Chloride 0.9% 1,000 ML IV SCH ×2 (06:05→16:54)
[2017-07-23] MEDS: Nystatin Powder 15 GM BOT TOP SCH ×2 (06:06→21:18)
[2017-07-23] MEDS: Docusate 100 MG CAP PO SCH (06:08)
[2017-07-23] MEDS ORDERED: Sodium Chloride 0.9% 1,000 ML IV SCH (08:00)
[2017-07-23] MEDS: Citalopram 10 MG TAB PO SCH (08:18)
[2017-07-23] MEDS ORDERED: Lidocaine 1% (PF) 30 ML VIAL ONE (09:10)
[2017-07-23] MEDS ORDERED: Midazolam HCl 2 mg/2 ml Vial ONE (09:55)
[2017-07-23] MEDS ORDERED: Fentanyl 100 MCG/2 ML VIAL ONE (09:55)
[2017-07-23] MEDS ORDERED: Heparin 10,000 UNITS/1 ML VIAL ONE (10:18)
[2017-07-23] MEDS ORDERED: Nitroglycerin 100MG/250ML BOT 250 ML ONE (10:20)
[2017-07-23] MEDS ORDERED: Morphine 4 MG/ML VIAL SLOW IVP PRN (11:00)
[2017-07-23] MEDS ORDERED: Clopidogrel Bisulfate 300 MG TAB ONE (11:13)
[2017-07-23] MEDS ORDERED: Clopidogrel Bisulfate 300 MG TAB PO SCH (11:15)
[2017-07-23] MEDS ORDERED: Iopamidol 370 76% 50 ML VIAL FS ONE (11:15)
[2017-07-23] MEDS ORDERED: Iopamidol 370 76% 100 ML VIAL ONE (11:15)
[2017-07-23] MEDS ORDERED: Fentanyl 100 MCG/2 ML VIAL SLOW IVP SCH (11:15)
[2017-07-23] MEDS: Melatonin 3 MG TAB PO SCH (21:15)
[2017-07-23] MEDS: Simvastatin 20 MG TAB PO SCH (21:16)
[2017-07-23] MEDS: Donepezil HCl 10 MG TAB PO SCH (21:16)
[2017-07-24 04:46] LABS: #Eosinphils 0.2 thou/uL (0.0-0.7); #Lymphocytes 1.2 thou/uL (1.20-3.40); #Monocytes 0.6 thou/uL (0.11-0.59); #Neutrophils 5.1 thou/uL (1.40-6.50); %Basophils 0.3 % (0.0-1.0); %Eosinophils 3.4 % (0.0-10.0); %Lymphocytes 17.4 % (21.0-51.0); %Monocytes 8.2 % (0.0-10.0); %Neutrophils 70.7 % (42.0-75.0); Hemoglobin 12.8 g/dL (12.0-16.0); Mean Corpuscular HGB CONC 33.9 g/dL (32.0-36.0); Mean Corpuscular Hemoglobin 32.1 pg (27.0-31.0); Mean Corpuscular Volume 94.5 fl (81.0-99.0); Mean Platelet Volume 7.3 fL (7.4-10.4); Platelet Count 259 thou/uL (130-400); RBC Distribution Width 13.4 % (11.5-14.5); Red Blood Cell (RBC) Count 3.97 mill/uL (4.20-5.40); White Blood Cell (WBC) Count 7.1 thou/uL (4.8-10.8)
[2017-07-24 05:03] VITALS: BMI 29.6
[2017-07-24 05:16] LABS: ALT (SGPT) 12 U/L (8-55); AST (SGOT) 22 U/L (5-34); Albumin 3.4 g/dL (3.4-4.8); Alkaline Phosphatase 54 U/L (40-150); Anion Gap 12 mmol/L (10-20); BUN (Urea Nitrogen) 9 mg/dL (9.8-20.1); Bilirubin, Total 0.4 mg/dL (0.2-1.2); Calc. Creatinine Clearance 75 mL/min (70-130); Calcium 8.9 mg/dL (7.8-10.44); Carbon Dioxide 19 mmol/L (23-31); Chloride 102 mmol/L (98-107); Estimated GFR-MDRD 77; Globulin 2.6 g/dL (2.4-3.5); Glucose 90 mg/dL (83-110); Potassium 4.2 mmol/L (3.5-5.1); Sodium 129 mmol/L (136-145)
[2017-07-24] MEDS: Levothyroxine Sodium 50 MCG TAB PO SCH (05:34)
[2017-07-24] MEDS: Citalopram 10 MG TAB PO SCH (09:53)
[2017-07-24] MEDS: Losartan 25 MG TAB PO SCH (09:53)
[2017-07-24] MEDS: Docusate 100 MG CAP PO SCH (09:53)
[2017-07-24] MEDS: Clopidogrel Bisulfate 75 MG TAB PO SCH (09:53)
[2017-07-24] MEDS: Aspirin 81 mg Enteric Coated Tablet PO SCH (09:53)
[2017-07-24] MEDS: Metoprolol Tartrate 25 MG TAB PO SCH ×2 (09:54→20:48)
[2017-07-24] MEDS: Nystatin Powder 15 GM BOT TOP SCH ×2 (09:57→20:49)
[2017-07-24] MEDS: Sodium Chloride 0.9% 1,000 ML IV SCH (09:58)
--- NOTE | 2017-07-24 12:31 | PRG ---
DATE OF SERVICE: 07/24/2017 TITO Lang dictating for Brien Edmond M.D. SUBJECTIVE: The patient had a good night. She has no chest pain. Her vital signs are stable. She is sitting in bed and eating breakfast. Her son-in-law just showed up at bedside. Upon evaluation, she is awake. PHYSICAL EXAMINATION: VITAL SIGNS: Her blood pressure is 150/60, pulse 80, respiratory rate is 18. She is afebrile. NECK: Supple. There is no increased JVP or carotid bruit. Carotid had good upstroke with no thyrom egaly CARDIOVASCULAR: Regular rate and rhythm. CHEST: Symmetrical. Clear to auscultation and percussion. ABDOMEN: Soft, nontender, normoactive bowel sounds. No bruit or organomegaly. EXTREMITIES: No edema or cyanosis. She had palpable pedal pulses. SKIN: There is no evidence of ulcers, lesions, or rash. NEUROLOGIC: She is awake and alert x2. LABORATORY DATA: Her CBC is normal. Her CMP showed a sodium of 129. Her BNP is 119.6. ASSESSMENT: 1. Status post myocardial infarction. 2. Status post percutaneous intervention. 3. Dementia. 4. History of hydrocephalus with shunt. 5. Hyponatremia. PLAN: The patient is close to going back to a facility when okay with Cardiology. Otherwise, we brodie l resume her home medication.
--- NOTE | 2017-07-24 18:53 | PRG ---
DATE OF SERVICE: 07/24/2017 SUBJECTIVE: Ms. Paulino is doing great today, no complaints, no chest pain or pressure. OBJECTIVE: VITAL SIGNS: Blood pressure 147/65, pulse 70 and regular. LUNGS: Clear. CARDIAC: Normal S1 and S2. ASSESSMENT: 1. Status post percutaneous coronary intervention of the proximal LAD. PrePTCA stenosis 90%, post 0 %. Excellent result. 2. Hypertension, controlled. PLAN: Okay to need to be released home tomorrow morning.
[2017-07-24] MEDS: Donepezil HCl 10 MG TAB PO SCH (20:47)
[2017-07-24] MEDS: Melatonin 3 MG TAB PO SCH (20:47)
[2017-07-24] MEDS: Simvastatin 20 MG TAB PO SCH (20:48)
[2017-07-25 05:15] LABS: ALT (SGPT) 14 U/L (8-55); AST (SGOT) 27 U/L (5-34); Alkaline Phosphatase 68 U/L (40-150); Anion Gap 10 mmol/L (10-20); BUN (Urea Nitrogen) 8 mg/dL (9.8-20.1); Bilirubin, Total 0.4 mg/dL (0.2-1.2); Calc. Creatinine Clearance 75 mL/min (70-130); Carbon Dioxide 20 mmol/L (23-31); Chloride 105 mmol/L (98-107); Estimated GFR-MDRD 70; Globulin 3.1 g/dL (2.4-3.5); Glucose 94 mg/dL (83-110); Potassium 4.3 mmol/L (3.5-5.1); Protein, Total 7.1 g/dL (6.0-8.3); Sodium 131 mmol/L (136-145)
[2017-07-25] MEDS: Levothyroxine Sodium 50 MCG TAB PO SCH (05:45)
[2017-07-25] MEDS: Losartan 25 MG TAB PO SCH (08:32)
[2017-07-25] MEDS: Docusate 100 MG CAP PO SCH (08:32)
[2017-07-25] MEDS: Citalopram 10 MG TAB PO SCH (08:32)
[2017-07-25] MEDS: Clopidogrel Bisulfate 75 MG TAB PO SCH (08:32)
[2017-07-25] MEDS: Aspirin 81 mg Enteric Coated Tablet PO SCH (08:32)
[2017-07-25] MEDS: Metoprolol Tartrate 25 MG TAB PO SCH (08:33)
[2017-07-25] MEDS: Nystatin Powder 15 GM BOT TOP SCH (08:34)
--- NOTE | 2017-07-25 09:31 | PRG ---
DATE OF SERVICE: 07/25/2017 Ms. Paulino is doing well, feels well, is due to be released home today. She has no chest pain or pressure. PHYSICAL EXAMINATION: LUNGS: Clear. CARDIAC: Normal S1, S2. ABDOMEN: Soft, nontender. EXTREMITIES: Right groin is nontender. ASSESSMENT: 1. Status post intracoronary stent, 90% lesion in the proximal LAD. 2. Status post non-ST elevation myocardial infarction. PLAN: The patient will be released home to see me in about a month. She is to take aspirin, Plavix, and statin as outlined in the chart.
[2017-07-25 12:18] VITALS: BP 150/66; TEMP 97.6
--- NOTE | 2017-07-25 12:37 | DIS ---
DATE OF ADMISSION: 07/21/2017 DATE OF DISCHARGE: 07/25/2017 CHIEF COMPLAINT ON ADMISSION: Chest pain. History and physical previously had been dictated. I will resume from there. HOSPITAL COURSE: The patient was placed in a telemetry bed where serial cardiac enzymes were monitor ed. During this time, the enzymes remain normal. Dr. Jamaal Roper was asked to see the patient in Cardiology consultation. He knew this patient from previous evaluation. She had had a chest x-ray a nd CT angiogram, which returned normal for PE. She had also had an echocardiogram, which showed norm al left ventricular size, left atrium moderately dilated, moderate mitral regurg, no aortic stenosis, and trace tricuspid regurge with an ejection fraction of 50%-55%; however, he felt with her history and risk factors, she would benefit from a catheterization and possible intervention by stent. He di d not feel like she was a surgical candidate. The patient was amenable to this and wants her family become available. This was discussed and agreed upon such that she was then taken to the labor utilization superintendent on 07/23/2017. There a stent was placed in the LAD, which had a 90% blockage. The patient tolerated t he procedure well. On 07/24/2017, postop, she did well. Her blood pressure, however, remained eleva colin, but she had no complaints of chest pain or complications such that by 07/25/2017 she was able to be discharged home. It was noted during hospitalization that she would become hyponatremic, and it was discovered the Zoloft was causing this. This was switched to citalopram without complication. T he patient was also noted to have some intertriginous skin rashes felt to be tenia in nature. She wa s placed on Nystatin powder while in the hospital. The patient's progress has done well, although he r blood pressure has remained slightly elevated. Her medication will be adjusted at discharge and fo llowed up on an outpatient basis. DIAGNOSES AT THE TIME OF DISCHARGE: 1. Coronary artery disease with chest pain. 2. Status post percutaneous coronary intervention with drug-eluting stent to the LAD. 3. Tinea corporis. 4. Hyponatremia, secondary to Zoloft. 5. Dementia. PLAN: The patient will be discharged on Plavix 75 daily. She will continue her 81 mg aspirin daily. She will continue citalopram 10 mg daily and stay off the Zoloft. She will continue Nystatin powde r as needed to her skin rash until healed. Her metoprolol dosage was increased to 25 mg b.i.d. Her Losartan dosage, which was begun at 50 in the hospital will be discharged at 100 mg every day. She w ill maintain her higher dose of Aricept at 10 mg q.h.s. as well. She will be followed up closely in the long term. Each medication was reconciled both prehospital and at discharge. The time necess clint to evaluate the chart, examine the patient, beauty counselor the patient, adjust her medications, and prep are for discharge including dictation came to 35 minutes and she is discharged in stable condition.
--- NOTE | 2017-07-25 20:13 | EKG ---
Test Reason : POST STENT Blood Pressure : / mmHG Vent. Rate : 063 BPM Atrial Rate : 063 BPM P-R Int : 160 ms QRS Dur : 088 ms QT Int : 454 ms P-R-T Axes : 054 -32 000 degrees QTc Int : 464 ms Normal sinus rhythm Left axis deviation Minimal voltage criteria for LVH, may be normal variant Abnormal ECG When compared with ECG of 21-JUL-2017 06:53, (Unconfirmed) RSR' pattern in V1 is no longer Present Confirmed by BETH POWELL ([id number]) on 07/25/2017 8:13:10 PM Referred By: TESSA Confirmed By:BETH POWELL
--- NOTE | 2017-07-25 20:19 | EKG ---
Test Reason : Blood Pressure : / mmHG Vent. Rate : 073 BPM Atrial Rate : 073 BPM P-R Int : 166 ms QRS Dur : 088 ms QT Int : 414 ms P-R-T Axes : 041 -30 -09 degrees QTc Int : 456 ms Normal sinus rhythm Left axis deviation Moderate voltage criteria for LVH, may be normal variant Abnormal ECG When compared with ECG of 23-JUL-2017 11:38, (Unconfirmed) No significant change was found Confirmed by BETH POWELL ([id number]) on 07/25/2017 8:18:52 PM Referred By: TESSA Confirmed By:BETH POWELL
== END 2017-07-25 12:45 | DRG 247 ==
LOC: ERS 06:21 → ERHOLD 11:24 → 2NO 12:18
PROVIDERS: ADMIT Specialist; ATTEND Specialist
PROC: 027034Z Dilation of Coronary Artery, One Artery with Drug-eluting Intraluminal Device, Percutaneous Approach (ICD-10-PCS; principal; 2017-07-23)
PROC: B2111ZZ Fluoroscopy of Multiple Coronary Arteries using Low Osmolar Contrast (ICD-10-PCS; 2017-07-23)
DX: I21.4 Non-ST elevation (NSTEMI) myocardial infarction (principal); E87.1 Hypo-osmolality and hyponatremia; G91.9 Hydrocephalus, unspecified; F03.90 Unspecified dementia, unspecified severity, without behavioral disturbance, psychotic disturbance, mood disturbance, and anxiety; I11.0 Hypertensive heart disease with heart failure; I25.10 Atherosclerotic heart disease of native coronary artery without angina pectoris; E03.9 Hypothyroidism, unspecified; I50.9 Heart failure, unspecified; E78.00 Pure hypercholesterolemia, unspecified; Z98.2 Presence of cerebrospinal fluid drainage device; I34.0 Nonrheumatic mitral (valve) insufficiency; K21.9 Gastro-esophageal reflux disease without esophagitis; B35.9 Dermatophytosis, unspecified; F32.9 Major depressive disorder, single episode, unspecified; T43.225A Adverse effect of selective serotonin reuptake inhibitors, initial encounter; Z88.0 Allergy status to penicillin; Z88.6 Allergy status to analgesic agent; Z88.1 Allergy status to other antibiotic agents
CPT/HCPCS: 36415; 71045; 71275; 76942; 80048; 80053; 80061; 82553; 83690; 83880; 84443; 84484; 85025; 85347; 85379; 92928; 93005; 93010; 93306; 93454; 93798; 96361; 96372; 96374; A4216; C1769; C1874; C1887; C9600; J1644; J1650; J1940; J2001; J2250; J3010

== ENCOUNTER 2017-07-25 17:13 | Emergency (ER) | payer MEDICARE ==
--- NOTE | 2017-07-25 18:07 | RAD ---
CHEST ONE VIEW: 07/25/17 HISTORY: Chest pain. COMPARISON: Chest radiograph 07/21/17. FINDINGS: Shunt catheter projects over the right hemithorax. Elevation of right hemidiaphragm. Patchy opacities both lung bases. Small left effusion. No pneumothorax. IMPRESSION: 1. Worsening interstitial opacity concerning for edema. 2. Patchy peripheral lingular opacity concerning for infection. 3. Small left effusion. POS: [facility]
[2017-07-25 18:47] LABS: #Eosinphils 0.5 thou/uL (0.0-0.7); #Lymphocytes 1.4 thou/uL (1.20-3.40); #Monocytes 0.7 thou/uL (0.11-0.59); #Neutrophils 4.5 thou/uL (1.40-6.50); %Basophils 0.6 % (0.0-1.0); %Eosinophils 6.8 % (0.0-10.0); %Lymphocytes 19.8 % (21.0-51.0); %Monocytes 9.2 % (0.0-10.0); %Neutrophils 63.5 % (42.0-75.0); Hemoglobin 13.5 g/dL (12.0-16.0); Mean Corpuscular HGB CONC 33.5 g/dL (32.0-36.0); Mean Corpuscular Hemoglobin 31.9 pg (27.0-31.0); Mean Corpuscular Volume 95.4 fl (81.0-99.0); Mean Platelet Volume 7.2 fL (7.4-10.4); Platelet Count 259 thou/uL (130-400); RBC Distribution Width 13.4 % (11.5-14.5); Red Blood Cell (RBC) Count 4.23 mill/uL (4.20-5.40); White Blood Cell (WBC) Count 7.2 thou/uL (4.8-10.8)
[2017-07-25 19:10] LABS: ALT (SGPT) 13 U/L (8-55); AST (SGOT) 23 U/L (5-34); Albumin 3.8 g/dL (3.4-4.8); Alkaline Phosphatase 60 U/L (40-150); Anion Gap 13 mmol/L (10-20); BUN (Urea Nitrogen) 9 mg/dL (9.8-20.1); Bilirubin, Total 0.3 mg/dL (0.2-1.2); CK (CPK) 40 U/L (29-168); Calc. Creatinine Clearance 0 mL/min (70-130); Calcium 9.6 mg/dL (7.8-10.44); Carbon Dioxide 23 mmol/L (23-31); Chloride 102 mmol/L (98-107); Estimated GFR-MDRD 71; Globulin 2.7 g/dL (2.4-3.5); Glucose 101 mg/dL (83-110); Potassium 4.8 mmol/L (3.5-5.1); Protein, Total 6.5 g/dL (6.0-8.3); Sodium 133 mmol/L (136-145)
[2017-07-25 19:15] LABS: CKMB 1.4 ng/mL (0-6.6)
[2017-07-25 19:24] LABS: Troponin I 1.039 ng/mL (< 0.028)
--- NOTE | 2017-07-25 20:03 | RAD ---
CHEST ONE VIEW 07/25/17 HISTORY: Chest pain. COMPARISON: Radiograph same day. FINDINGS: Wedge compression fractures are similar in lower thoracic and lumbar spine. No large effusion is appr eciated. Lingular opacity is not well seen on this examination. IMPRESSION: Elevated right hemidiaphragm. The lingular opacity is not well seen. POS: [facility]
--- NOTE | 2017-07-28 14:46 | EKG ---
Test Reason : Blood Pressure : / mmHG Vent. Rate : 079 BPM Atrial Rate : 079 BPM P-R Int : 164 ms QRS Dur : 088 ms QT Int : 416 ms P-R-T Axes : 039 -29 -04 degrees QTc Int : 477 ms Normal sinus rhythm Possible Left atrial enlargement Left ventricular hypertrophy Prolonged QT Abnormal ECG No ST elevation/AK Confirmed by REBECCA ARAUZ M.D. ([id number]), school photograph editor MILANA TAYLOR ([id number]) on 07/28/2017 2:46:06 PM Referred By: Confirmed By:REBECCA ARAUZ M.D.
== END 2017-07-25 21:35 | disposition home or self-care (01) ==
LOC: ERS 17:13
DX: J18.9 Pneumonia, unspecified organism (principal); J98.11 Atelectasis; E03.9 Hypothyroidism, unspecified; I10 Essential (primary) hypertension; F03.90 Unspecified dementia, unspecified severity, without behavioral disturbance, psychotic disturbance, mood disturbance, and anxiety; F41.9 Anxiety disorder, unspecified; F32.9 Major depressive disorder, single episode, unspecified; K21.9 Gastro-esophageal reflux disease without esophagitis; Z79.899 Other long term (current) drug therapy
CPT/HCPCS: 36415; 71045; 82550; 82553; 83735; 83880; 84484; 85025; 87040; 93005; 96365; J1956

== ENCOUNTER 2018-03-25 12:03 | Emergency (ER) | payer MEDICARE ==
[2018-03-25] MEDS ORDERED: Ondansetron PF 4 MG/2 ML Vial ONE (13:27)
[2018-03-25 13:35] LABS: Mean Corpuscular HGB CONC 32.7 g/dL (32.0-36.0); Mean Corpuscular Hemoglobin 31.3 pg (27.0-31.0); Mean Corpuscular Volume 95.8 fL (78.0-98.0); Platelet Count 189 thou/uL (130-400); RBC Distribution Width 13.3 % (11.5-14.5); Red Blood Cell (RBC) Count 4.16 mill/uL (4.20-5.40); White Blood Cell (WBC) Count 4.1 thou/uL (4.8-10.8)
[2018-03-25 13:54] LABS: ALT (SGPT) 20 U/L (8-55); AST (SGOT) 35 U/L (5-34); Albumin 3.7 g/dL (3.4-4.8); Alkaline Phosphatase 51 U/L (40-150); Anion Gap 12 mmol/L (10-20); BUN (Urea Nitrogen) 25 mg/dL (9.8-20.1); Band 9 % (5-11); Bilirubin, Total 0.3 mg/dL (0.2-1.2); Calc. Creatinine Clearance 0 mL/min (70-130); Calcium 9.1 mg/dL (7.8-10.44); Carbon Dioxide 24 mmol/L (23-31); Chloride 103 mmol/L (98-107); Eosinophils 8 % (0-10); Estimated GFR-MDRD 35; Globulin 2.8 g/dL (2.4-3.5); Glucose 90 mg/dL (83-110); Lipase 65 U/L (8-78); Lymphocytes 19 % (21-51); MDiff Complete? YES; Monocytes 16 % (0-10); Neutrophil 38 % (42-75); Platelet Morphology Comment Appears Adequate; Potassium 3.5 mmol/L (3.5-5.1); Protein, Total 6.5 g/dL (6.0-8.3); RBC Morphology Normal; Reactive Lymphocytes 10 % (0-10); Sodium 135 mmol/L (136-145)
== END 2018-03-25 15:44 ==
LOC: ERS 12:03
DX: F41.9 Anxiety disorder, unspecified (principal); F32.9 Major depressive disorder, single episode, unspecified; E03.9 Hypothyroidism, unspecified; K21.9 Gastro-esophageal reflux disease without esophagitis; F03.90 Unspecified dementia, unspecified severity, without behavioral disturbance, psychotic disturbance, mood disturbance, and anxiety; I10 Essential (primary) hypertension
CPT/HCPCS: 36415; 80053; 83690; 85025; 96360; J2405

== ENCOUNTER 2018-04-08 09:20 | Outpatient (CLI) | payer MEDICARE ==
--- NOTE | 2018-04-08 13:07 | CT ---
CT OF THE ABDOMEN AND PELVIS WITHOUT IV CONTRAST: INDICATION: History of recurrent UTIs. COMPARISON: CTA of the thorax dated 07/21/2017. FINDINGS: There is bibasilar atelectasis. There is a moderate-sized hiatal hernia. There are coronary artery thoracic aorta calcifications. There is a ventriculoperitoneal shunt catheter in place. The tip of the catheter projects into the l ower pelvis. Mild free fluid is scattered within the lower abdomen and pelvis. Unopacified liver, spleen, pancreas, and adrenal glands are unremarkable. No renal or ureteral calcu audra is evident. No hydronephrosis is evident. There are moderate calcifications involving the abdominal aorta. The bladder appears within normal limits. There is scattered diverticula involving the colon without evidence of diverticulitis. A mild amount of retained stool is seen within the colon. There is diffuse osteopenia. Compression abnormalities involving T12 and T10 are stable to a compari son CT of the chest dated 07/21/2017. IMPRESSION: 1. No renal or ureteral calculus. 2. No hydronephrosis. 3. Chronic findings as above. POS: [facility]
== END 2018-04-08 09:21 | disposition home or self-care (01) ==
LOC: CT 09:20
PROVIDERS: ATTEND Urology
DX: N39.0 Urinary tract infection, site not specified (principal); K44.9 Diaphragmatic hernia without obstruction or gangrene; I25.10 Atherosclerotic heart disease of native coronary artery without angina pectoris; I70.0 Atherosclerosis of aorta; K57.30 Diverticulosis of large intestine without perforation or abscess without bleeding; M85.88 Other specified disorders of bone density and structure, other site; Z98.2 Presence of cerebrospinal fluid drainage device
CPT/HCPCS: 74176

== ENCOUNTER 2018-07-06 21:55 | Emergency (ER) | payer MEDICARE ==
[2018-07-06] MEDS ORDERED: Acetaminophen 500 MG TAB ONE (22:32)
--- NOTE | 2018-07-06 23:06 | RAD ---
SHUNTOGRAM: 07/06/18 Altered mental status. FINDINGS/IMPRESSION: There is a ventriculoperitoneal shunt which starts on the right side in the skull and traverses down the right side of the neck and chest into the right upper abdomen. It then curves to the left and sherron cends inferiorly into the left hemiabdomen and pelvis with tip in the pelvis. No disruption or disco ntinuity is seen. POS: [facility]
--- NOTE | 2018-07-06 23:49 | CT ---
CT OF BRAIN WITHOUT CONTRAST 07/06/18 HISTORY: Normal pressure hydrocephalus. SECURITY OPERATIONS ANALYST shunt pain. FINDINGS: Comparison made with exam of 08/15/16. The right sided ventriculoperitoneal shunt tubing is unchanged in position. The size of the lateral v entricles is stable. No evidence of acute infarct, hemorrhage, midline shift, or abnormal extra-axial fluid collections are seen. 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 The bony calvarium is intact. There is mucosa disease in the paranasal sinuses. IMPRESSION: Stable exam. No CT evidence of acute intracranial process. POS: [facility]
== END 2018-07-07 00:48 | disposition home or self-care (01) ==
LOC: ERS 21:55
DX: T85.09XA Other mechanical complication of ventricular intracranial (communicating) shunt, initial encounter (principal); E03.9 Hypothyroidism, unspecified; I10 Essential (primary) hypertension; F03.90 Unspecified dementia, unspecified severity, without behavioral disturbance, psychotic disturbance, mood disturbance, and anxiety; K21.9 Gastro-esophageal reflux disease without esophagitis; F41.9 Anxiety disorder, unspecified; F32.9 Major depressive disorder, single episode, unspecified; Z79.899 Other long term (current) drug therapy
CPT/HCPCS: 70450; 75809

== ENCOUNTER 2019-08-24 13:40 | Inpatient (IN) | payer MEDICARE ==
--- NOTE | 2019-08-24 13:59 | CT ---
Exam: Head CT without contrast HISTORY: Altered mental status. Confusion. Patient is leaning towards the left side. Aphasia. COMPARISON: 08/04/2019, 07/06/2018 FINDINGS: Hemorrhage: No intraparenchymal hemorrhage or extra-axial hematoma. Brain parenchyma: Cortical oreilly-white matter differentiation is preserved. No mass effect or midline shift. Basilar cisterns are patent.Stable white matter hypodensities which may represent chronic small vessel ischemic change. However, the ventricular system is enlarged. The possibility of transep endymal flow CSF cannot be excluded. Stable malacia in the left cerebellar hemisphere. Ventricular system: Stable ventricle likely despite the presence of a ventricular peritoneal shunt ca theter via the right parietal approach. Distal tip appears to be just beyond the medial aspect of the right lateral ventricle. Distal tip is unchanged in position. Calvarium: Intact. Sinuses and mastoid air cells: Adequate aeration. IMPRESSION: 1. No acute intracranial process 2. Persistent ventriculomegaly, despite the presence of a ventriculoperitoneal shunt catheter. The ap pearance of the ventricular system has not changed. 3. Results study discussed with Dr. Garcia 08/24/2019 at 1:55 PM Code CR
[2019-08-24 14:13] LABS: #Basophils 0.1 thou/uL (0.0-0.2); #Eosinphils 0.1 thou/uL (0.0-0.7); #Lymphocytes 1.6 thou/uL (1.20-3.40); #Monocytes 0.9 thou/uL (0.11-0.59); #Neutrophils 13.4 thou/uL (1.40-6.50); %Basophils 0.4 % (0.0-1.0); %Eosinophils 0.9 % (0.0-10.0); %Monocytes 5.5 % (0.0-10.0); %Neutrophils 83.2 % (42.0-75.0); Hemoglobin 12.4 g/dL (12.0-16.0); Mean Corpuscular HGB CONC 30.5 g/dL (32.0-36.0); Mean Corpuscular Hemoglobin 28.5 pg (27.0-31.0); Mean Corpuscular Volume 93.5 fL (78.0-98.0); Mean Platelet Volume 8.1 fL (7.4-10.4); Platelet Count 466 thou/uL (130-400); RBC Distribution Width 18.9 % (11.5-14.5); Red Blood Cell (RBC) Count 4.36 mill/uL (4.20-5.40); White Blood Cell (WBC) Count 16.1 thou/uL (4.8-10.8)
[2019-08-24 14:17] LABS: INR-International Normal Ratio 1.4; PTT 22.1 sec (22.9-36.1); Prothrombin Time 17.5 sec (12.0-14.7)
[2019-08-24 14:28] LABS: Anisocytosis SLIGHT = 6-15 cells (100X) (0-5/hpf); Band 25 % (5-11); Lymphocytes 12 % (21-51); MDiff Complete? YES; Monocytes 8 % (0-10); Neutrophil 55 % (42-75); Platelet Morphology Comment Appears Increased; Polychromasia SLIGHT = 2-3 cells (100X) (0-2/hpf)
[2019-08-24 14:40] LABS: ALT (SGPT) 8 U/L (8-55); AST (SGOT) 15 U/L (5-34); Albumin 3.5 g/dL (3.4-4.8); Alkaline Phosphatase 69 U/L (40-110); Anion Gap 34 mmol/L (10-20); BUN (Urea Nitrogen) 31 mg/dL (9.8-20.1); Bilirubin, Total 0.4 mg/dL (0.2-1.2); CK (CPK) 31 U/L (29-168); Calc. Creatinine Clearance 0 mL/min (70-130); Calcium 9.5 mg/dL (7.8-10.44); Carbon Dioxide 12 mmol/L (23-31); Chloride 106 mmol/L (98-107); Estimated GFR-MDRD 22; Globulin 3.5 g/dL (2.4-3.5); Glucose 172 mg/dL (83-110); Potassium 5.5 mmol/L (3.5-5.1); Sodium 146 mmol/L (136-145)
--- NOTE | 2019-08-24 14:54 | RAD ---
Exam: Chest one view HISTORY:Stroke like symptoms. Comparison: 07/25/2017 FINDINGS: Lines and tubes: Redemonstration of a ventricular peritoneal shunt catheter Cardiac silhouette: Normal Aorta: Atherosclerosis Pulmonary vessels: Normal Costophrenic angles: Small right-sided pleural effusion LUNGS: Lung volumes, likely due to a poor inspiratory effort. Chronic lung parenchymal changes, witho ut mass or consolidation. Pneumothorax: None Osseous abnormalities: None IMPRESSION: 1. Diminished lung volumes due to a poor inspiratory effort. 2. Atherosclerosis. 3. Small right-sided pleural effusion
[2019-08-24 14:55] LABS: CKMB 1.2 ng/mL (0-6.6)
[2019-08-24 15:03] LABS: Bacteria/HPF 4+ HPF (None Seen); Bilirubin Negative (Negative); Blood, Urine Negative (Negative); Clarity Turbid (Clear); Glucose, Urine (Dipstick) Normal (Negative); Leukocyte 250 Leu/uL (Negative); Nitrite 2+ (Negative); Protein, Urine (Dipstick) 30 mg/dL (Neg-Trace); RBC/HPF 0-3 HPF (0-3); Squamous Epithelial 0-3 HPF (0-3); Urobilinogen Normal mg/dL (Less than 2)
[2019-08-24] MEDS ORDERED: MEROPENEM 1 GM/50 ML 1 GM in Premix Bag 1 BAG IVPB SCH (15:45)
[2019-08-24 15:53] LABS: Actual Bicarbonate (HCO3a) 18.3 mEq/L (22-28); Analyzer IN Cardio ER; Base Excess (BEa) -0.8 mEq/L (-2.0 to +3.0); Carboxyhemoglobin (COHb) 0.3 gm% (0.0-3.0); Hemoglobin (Hb) 11.3 g/dL (12.0-16.0); O2 Tension (PaO2), arterial 110.3 mmHg (> 60.0); Potassium - ABG Lab 4.32 mmol/L (3.70-5.30)
[2019-08-24 15:56] LABS: CO2 Tension 17.8 mmHg (35.0-45.0); pH, Arterial 7.63 (7.35-7.45)
[2019-08-24 15:57] LABS: Puncture Site LBA
[2019-08-24 16:11] LABS: Acetaminophen Less than 6.0 mcg/mL (10.0-30.0); Alcohol Less than 10 mg/dL (Less than 10); Salicylate Less than 8.0 mg/dL (15.0-30.0)
[2019-08-24 16:19] LABS: Lactic Acid 7.3 mmol/L (0.5-2.2)
[2019-08-24 16:37] LABS: Anion Gap 24 mmol/L (10-20); BUN (Urea Nitrogen) 32 mg/dL (9.8-20.1); Calc. Creatinine Clearance 0 mL/min (70-130); Carbon Dioxide 21 mmol/L (23-31); Chloride 105 mmol/L (98-107); Estimated GFR-MDRD 22; Glucose 140 mg/dL (83-110); Potassium 4.9 mmol/L (3.5-5.1); Sodium 145 mmol/L (136-145)
--- NOTE | 2019-08-24 16:37 | PDOC.FPRHP ---
- History of Present Illness Chief Complaint: AMS History of Present Illness: Patient is an 84 y/o female with a PMH significant for Dementia and Normal Pressure Hydrocephalus who presents to the ED from her detention due to lethargy and tachypnea. Patient was a poor historian and was A&Ox2 on initial evaluation, so much of the HPI and ROS were obtained from EMS, the ED Attending Physician, and the patient's daughter, who was present in the ED. Per the ED Attending Physician, the patient was noted to have "slumped" over in her wheelchair. She was difficult to arouse and was subsequently transferred to the ED for evaluation by EMS. There were no reports of trauma or medication non- compliance, although the patient's daughter did note that she had not been eating well lately, despite being on Megace. ED Course: CXR: NAF CT Brain: NAF EKG: Sinus Tachycardia (108) w/ Non-Specific Changes WBCs: 16.1 UA: +Bacteria, +WBCs, +LE, +Nitrites LA: 7.3 ABG: pH(7.63), pCO2(17.8), pO2(110.3) - Allergies/Adverse Reactions Allergies Allergy/AdvReac Type Severity Reaction Status Date / Time cephalexin monohydrate Allergy Verified 07/12/16 15:22 [From Keflex] codeine Allergy Verified 07/12/16 15:22 Penicillins Allergy Verified 07/12/16 15:22 Sulfa (Sulfonamide Allergy Verified 07/12/16 15:22 Antibiotics) - Home Medications Medication Instructions Recorded Confirmed Type Cholecalciferol (Vitamin D3) 1 capsule PO QPM 12/28/13 07/21/17 History [Vitamin D3] Levothyroxine Sodium [Synthroid] 50 mcg PO DAILY 12/28/13 07/21/17 History Cetirizine HCl [All Day Allergy] 10 mg PO DAILY 03/02/16 07/21/17 History Acetaminophen [Tylenol Regular 650 mg PO Q4HR PRN 03/07/16 07/21/17 History Strength] Fluticasone Propionate [Flonase 1 spray EA NARE BID 03/07/16 07/21/17 History Nasal [place]] Calcium Carbonate/Vitamin D3 1 tab PO DAILY 06/11/17 07/21/17 History [Calcium 600-Vit D3 200 Tablet] Docusate [Colace] 100 mg PO DAILY 06/11/17 07/21/17 History Esomeprazole Magnesium [NexIUM] 40 mg PO QAM-WM 06/11/17 07/21/17 History Melatonin 10 mg PO HS 06/11/17 07/21/17 History Simvastatin [Zocor] 20 mg PO HS 06/11/17 07/21/17 History Ipratropium/Albuterol Sulfate 3 ml NEB QID 30 Days neb 06/15/17 07/21/17 Rx [DuoNeb] Memantine HCl [Namenda] 10 mg PO BID 07/21/17 07/21/17 History Aspirin Chewable [Aspirin Chewable 81 mg PO DAILY 07/25/17 07/25/17 History Tablet] Citalopram [CeleXA] 10 mg PO DAILY #30 tab 07/25/17 Rx Clopidogrel Bisulfate [Plavix] 75 mg PO DAILY #30 tablet 07/25/17 Rx Donepezil HCl [Aricept] 10 mg PO HS #30 tab 07/25/17 Rx Losartan Potassium [Cozaar] 100 mg PO DAILY #30 tablet 07/25/17 Rx Metoprolol Tartrate 25 mg PO BID #60 tablet 07/25/17 Rx Nystatin [Mycostatin Powder] 1 applic TOP BID #1 bot 07/25/17 Rx - History PMHx: Dementia, Normal Pressure Hydrocephalus, CAD PSHx: Shunt Placement, Heart Catheterization FHx: Mother (DM2) Social: Denies x3. - Review of Systems General: denies: fever/chills, fatigue Eyes: denies: vision changes ENT: denies: nasal congestion, rhinorrhea Respiratory: denies: cough, shortness of breath Cardiovascular: denies: chest pain Gastrointestinal: denies: nausea, vomiting, diarrhea, constipation, abdominal pain, GI bleeding Genitourinary: denies: dysuria, discharge Skin: denies: rashes, itching Musculoskeletal: denies: pain, arthritis/arthralgias Neurological: denies: syncope, weakness - Vital signs BP: 130/39 HR: 86 RR: 33 Tmax: 98.6 Pox: 100 RA% Wt: 56kg - Physical Exam Constitutional: NAD, well developed, other -Constitutional: A&Ox2 HEENT: normocephalic and atraumatic, PERRLA, EOMI, conjunctiva clear, no scleral icterus, grossly normal vision, grossly normal hearing, normal nasal mucosa, MMM, oropharynx clear -HEENT: Small laceration noted on left side of forehead - advanced stages of healing Neck: supple, FROM, trachea midline, no LAD, no JVD, no thyromegaly, no bruits Chest: no-tender to palpation, no lesions Heart: normal S1/S2, no murmurs/rubs/gallops, pulses present, no edema -Heart: Mild Tachycardia Lungs: CTAB, no respiratory distress, good air movement, no rales/rhonchi, no wheezing, no retractions Abdomen: soft, non-tender, bowel sounds present, no masses/distention, no hernias Musculoskeletal: normal structure, normal tone Neurological: no focal deficit, CN II-XII intact Skin: no rash/lesions, no jaundice Heme/Lymphatic: no purpura, no petechia, no LAD Psychiatric: other (Patient was mildly guarded and A&Ox2, but otherwise cooperative with the exam.) FMR H&P: Results - Labs Result Diagrams: 08/24/19 13:43 08/24/19 15:42 Lab results: WBC 16.1 thou/uL (4.8-10.8) H 08/24/19 13:43 Hgb 12.4 g/dL (12.0-16.0) 08/24/19 13:43 Hct 40.8 % (36.0-47.0) 08/24/19 13:43 MCV 93.5 fL (78.0-98.0) 08/24/19 13:43 Plt Count 466 thou/uL (130-400) H 08/24/19 13:43 Neutrophils % 83.2 % (42.0-75.0) H 08/24/19 13:43 Band Neuts % (Manual) 25 % (5-11) H 08/24/19 13:43 ABG pH 7.63 (7.35-7.45) H* 08/24/19 15:30 ABG pCO2 17.8 mmHg (35.0-45.0) L* 08/24/19 15:30 ABG pO2 110.3 mmHg (> 60.0) H 08/24/19 15:30 Sodium 146 mmol/L (136-145) H 08/24/19 13:43 Potassium 5.5 mmol/L (3.5-5.1) H 08/24/19 13:43 Chloride 106 mmol/L (98-107) 08/24/19 13:43 Carbon Dioxide 12 mmol/L (23-31) L 08/24/19 13:43 BUN 31 mg/dL (9.8-20.1) H 08/24/19 13:43 Creatinine 2.17 mg/dL (0.6-1.1) H 08/24/19 13:43 Glucose 172 mg/dL (83-110) H 08/24/19 13:43 Lactic Acid 7.3 mmol/L (0.5-2.2) H* 08/24/19 15:43 Calcium 9.5 mg/dL (7.8-10.44) 08/24/19 13:43 Total Bilirubin 0.4 mg/dL (0.2-1.2) 08/24/19 13:43 AST 15 U/L (5-34) 08/24/19 13:43 ALT 8 U/L (8-55) 08/24/19 13:43 Alkaline Phosphatase 69 U/L (40-110) 08/24/19 13:43 Creatine Kinase 31 U/L (29-168) 08/24/19 13:43 CK-MB (CK-2) 1.2 ng/mL (0-6.6) 08/24/19 13:43 Serum Total Protein 7.0 g/dL (6.0-8.3) 08/24/19 13:43 Albumin 3.5 g/dL (3.4-4.8) 08/24/19 13:43 Urine Ketones Trace mg/dL (Negative) A 08/24/19 14:26 Urine Blood Negative (Negative) 08/24/19 14:26 Urine Nitrite 2+ (Negative) A 08/24/19 14:26 Ur Leukocyte Esterase 250 Shahram/uL (Negative) A 08/24/19 14:26 Urine RBC 0-3 HPF (0-3) 08/24/19 14:26 Urine WBC 11-20 HPF (0-3) A 08/24/19 14:26 Ur Squamous Epith Cells 0-3 HPF (0-3) 08/24/19 14:26 Urine Bacteria 4+ HPF (None Seen) A 08/24/19 14:26 - EKG Interpretation EKG: Sinus Tachycardia w/ Non-Specific EKG Changes - Radiology Interpretation CT scan - head Status: report reviewed by me (GAUDENCIO) Chest x-ray Status: report reviewed by me (GAUDENCIO) FMR H&P: A/P - Problem List (1) Sepsis Current Visit: Yes Status: Acute Code(s): A41.9 - SEPSIS, UNSPECIFIED ORGANISM (2) Dementia Current Visit: Yes Status: Acute Code(s): F03.90 - UNSPECIFIED DEMENTIA WITHOUT BEHAVIORAL DISTURBANCE (3) Normal pressure hydrocephalus Current Visit: Yes Status: Acute Code(s): G91.2 - (IDIOPATHIC) NORMAL PRESSURE HYDROCEPHALUS (4) Lactic acid blood increased Current Visit: Yes Status: Acute Code(s): R79.89 - OTHER SPECIFIED ABNORMAL FINDINGS OF BLOOD CHEMISTRY (5) High anion gap metabolic acidosis Current Visit: Yes Status: Acute Code(s): E87.2 - ACIDOSIS (6) Respiratory alkalosis Current Visit: Yes Status: Acute Code(s): E87.3 - ALKALOSIS - Plan Patient is an 84 y/o female with a PMH significant for Dementia and Normal Pressure Hydrocephalus who presents to the ED after she was noted to have "slumped over in her wheelchair" 1. Sepsis, likely 2/2 to UTI -Patient meets Sepsis Criteria based on elevated WBCs, Tachycardia, Tachypnea and likely source of infection -UA: +Bacteria, +WBCs, +LE, +Nitrites -UCx: Pending -BCx: Pending -s/p 1L NS Bolus, followed by 30 ml/kg NS bolus - currently receiving LR @ 100 ml/hr -s/p Meropenem in ED - will start Vancomycin and Zosyn with renal dosing -Trops: 0.045 - will continue to trend -Procal: Pending - will continue to trend -PT/OT Consult: Pending -Post-Acute Care Screen: Pending -C[facility]enter Maintenance Consult: Pending 2. Mixed Metabolic / Respiratory Alkalosis -pH(7.63) -pCO2: 17.8 -HCO3: 18.3 -Will repeat ABG at 2200 following aggressive fluid resuscitation and trend with AM Labs 3. Lactic Acidosis -LA: 7.3 -s/p aggressive fluid resuscitation -Will repeat LA at 2200 and reassess 4. GREG vs. CKD -Cr: 2.1 on admission -s/p aggressive fluid resuscitation -Will trend with AM Labs and avoid nephrotoxic agents 5. Dementia -Patient was A&Ox2 during evaluation -Per patient's daughter - no acute change in patient's mental status 6. Vascular Dementia -CT Brain: NAF -Currently stable per patient's daughter - no recent need for shunt replacement or removal 7. CAD -Will continue patient's home medication regimen PCP: Caleb Code: Full Diet: HH Activity: Strict Bedrest IVF: LR @ 100 ml/hr VTE PPx: Heparin TID w/ SCDs Dispo: Patient is currently stable and admitted to the [facility] for ongoing treatment of Sepsis, likely 2/2 UTI. Will continue with aggressive fluid resuscitatio, renally-dosed ABx, and trend labs as per above. Expected LOS > 48H FMR H&P: Upper Level - Plan Date/Time: 08/24/19 0657 IDarlene, have evaluated this patient and agree with findings/plan as outlined by art gallery internship resident. Pertinent changes/additions are listed here. 84 yo detention patient with dementia sent over for "stroke." Upon arriving in ER was found to have UTI, admitted for sepsis 2/2 UTI. Daughter present in room to help provide history, but patient alert and awake. Says she felt "bad" today. Denies fever, dysuria, chills, abd pain. No focal neuro deficits, as noted per daughter. Has hx of UTIs in past which have all been sensitive. In ER given 1g merem, 1L LR. ABG in ER showed respiratory alkalosis/metabolic alkalosis. VS: BP: 130/39 HR: 86 RR: 33 Tmax: 98.6 Pox: 100 RA% Wt: 56kg PE: Gen-NAD Resp: CTAB, tachypneic CV: RRR, no murmurs Skin: Poor cap refill, increased skin turgor Extrem: Moves all 4, no focal neurologic deficits. Abd: Soft, ND, NT Labs: Lactic acid- 7.3 HCO3-21 AGap- 24 Cr -2.10 WBC -16, 25% bands UA: Troponins 0.045/CKMB 1.2 EKG: Nonspecific T wave changes. A/P: 84 yo F admitted for sepsis 2/2 UTI, mixed metabolic/resp alkalosis and metabolic acidosis #Sepsis 2/2 UTI -WBC 16 with 25% bandemia, P 108, RR 33, UA: c/w with UTI -s/p merem 1g and LR 1L in ER. Switch to vanc & zosyn, pending BCx/UCx -Complete 30cc/kg bolus -Procal to trend -Admit IMCU/inpatient due concern for stability overnight #Lactic acidosis -LA 7.3, fluids then recheck #Dehydration -Elevated BUN, exam consistent with this -Fluids- reassess in AM #Mixed metabolic and respiratory alkalosis and also metabolic acidosis -pH 7.63/pCO2 17.8/ HCO3 18.3 -Resp alkalosis could be 2/2 megace-hold for now -Recheck after fluids #Indeterminate troponins -0.045, no chest pain, CKMB wnl-likely demand ischemia -EKG unremarkable -Trend #GREG vs. CKD -Cr 2.10 (1.76 on last admission) -Fluids, recheck BMP in AM #Prolonged PT -INR 1.4, APTT 22.1, PT 17.5 #Dementia -home meds #CAD -home meds #Normal pressure hydrocephalus with SOLAR POWER INSTALLER shunt -Placed in 2017 -Brain CT: SOLAR POWER INSTALLER shunt in place with stable ventriculomegaly Code: Full PCP: Dr. Ellis Abx: Vanc & zosyn Admit: IMCU Dispo: >2 midnights Addendum - Attending - Attending Attestation Date/Time: 08/24/19 4162 I personally evaluated the patient and discussed the management with Dr. Brown /Juan Carlos. I agree with the History, Examination, Assessment and Plan documented above with any addition or exceptions noted below. Patient here from [facility] due to concern for altered mentation. History obtained from daughter and from PCP. Patient apparently had some alteration in mentation this morning, SNF staff had concern for possible CVA so sent patient to ED for evaluation. Patient denies any chest pain, shortness of breath, recent cough, congestion, nausea, vomiting, diarrhea, abdominal pain, dysuria. Daughter reports that patient overall appears at baseline mentation and status and reports that she actually seems improved since the last time she saw her on when she was evaluated by ED for a fall. Daughter does mention that patient suffers from recurrent UTI 2/2 diaper use. On exam, patient appears dry, cap refill decreased but peripheral pulses 2+. Her abdomen is soft and nontender. Vitals overall stable with SBP 130s and afebrile. HR 80s. Labs show leukocytosis, UA c/w UTI, hyperlactatemia, and ABG showing primary respiratory alkalosis with concomitant metabolic alkalosis. Patient will be admitted to IM for sepsis 2/2 UTI. Unknown etiology of primary respiratory alkalosis, but suspect her metabolic alkalosis is related to contraction alkalosis. She also has hyperlactatemia from her sepsis picture and hypovolemia. Will fluid resuscitate 30ml/kg and recheck labs including ABG. Monitor respiratory status closely, CXR overall clear. Check chronic medications to ensure that could not be contributing to her acid/base disturbance. Continue Meropenem due to cephalosporin allergy, consider Vanc. Blood and urine cx. Trend labs. Also appears patient has GREG that is likely related to her acute presentation and will continue to trend.
[2019-08-24] MEDS ORDERED: Ondansetron PF 4 MG/2 ML Vial IVP PRN (20:09)
[2019-08-24] MEDS: Lactated Ringer's 1,000 ML IV SCH (20:38)
[2019-08-24 20:54] VITALS: BMI 20.1
[2019-08-24] MEDS ORDERED: Famotidine 20 MG TAB PO SCH (21:00)
[2019-08-24] MEDS ORDERED: Vancomycin 1 GM in Premix Bag 1 BAG IVPB SCH (21:15)
[2019-08-24] MEDS ORDERED: Piperacillin/Tazobactam 4.5 GM in Sodium Chloride 0.9% 100 ML IVPB SCH (22:00)
[2019-08-24 22:37] LABS: Actual Bicarbonate (HCO3a) 23.6 mEq/L (22-28); CO2 Tension 26.4 mmHg (35.0-45.0); Calcium, Ionized (arterial) 1.15 mmol/L (1.12-1.30); Carboxyhemoglobin (COHb) 0.8 gm% (0.0-3.0); Hemoglobin (Hb) 9.2 g/dL (12.0-16.0); O2 Tension (PaO2), arterial 62.8 mmHg (> 60.0); Potassium - ABG Lab 3.99 mmol/L (3.70-5.30)
[2019-08-24 22:38] LABS: Lactic Acid 3.4 mmol/L (0.5-2.2); Troponin I 0.071 ng/mL (< 0.028)
[2019-08-24 22:41] LABS: pH, Arterial 7.57 (7.35-7.45)
[2019-08-24 22:43] LABS: Puncture Site R BRACHIAL
[2019-08-25 01:37] LABS: Troponin I 0.046 ng/mL (< 0.028)
[2019-08-25 04:19] LABS: INR-International Normal Ratio 1.4; PTT 41.9 sec (22.9-36.1); Prothrombin Time 17.2 sec (12.0-14.7)
[2019-08-25 04:31] LABS: #Eosinphils 0.1 thou/uL (0.0-0.7); #Lymphocytes 1.9 thou/uL (1.20-3.40); #Monocytes 0.8 thou/uL (0.11-0.59); #Neutrophils 7.5 thou/uL (1.40-6.50); %Basophils 0.1 % (0.0-1.0); %Eosinophils 0.8 % (0.0-10.0); %Lymphocytes 18.1 % (21.0-51.0); %Monocytes 7.8 % (0.0-10.0); %Neutrophils 73.2 % (42.0-75.0); Hemoglobin 8.8 g/dL (12.0-16.0); Mean Corpuscular HGB CONC 31.7 g/dL (32.0-36.0); Mean Corpuscular Hemoglobin 28.8 pg (27.0-31.0); Mean Corpuscular Volume 90.7 fL (78.0-98.0); Mean Platelet Volume 8.5 fL (7.4-10.4); Platelet Count 374 thou/uL (130-400); RBC Distribution Width 18.4 % (11.5-14.5); Red Blood Cell (RBC) Count 3.06 mill/uL (4.20-5.40); White Blood Cell (WBC) Count 10.2 thou/uL (4.8-10.8)
[2019-08-25 04:33] LABS: ALT (SGPT) 7 U/L (8-55); AST (SGOT) 16 U/L (5-34); Albumin 2.5 g/dL (3.4-4.8); Alkaline Phosphatase 46 U/L (40-110); Anion Gap 12 mmol/L (10-20); BUN (Urea Nitrogen) 29 mg/dL (9.8-20.1); Bilirubin, Total 0.2 mg/dL (0.2-1.2); Calc. Creatinine Clearance 21 mL/min (70-130); Calcium 8.3 mg/dL (7.8-10.44); Carbon Dioxide 26 mmol/L (23-31); Chloride 109 mmol/L (98-107); Estimated GFR-MDRD 29; Globulin 3.1 g/dL (2.4-3.5); Glucose 85 mg/dL (83-110); Protein, Total 5.6 g/dL (6.0-8.3); Sodium 143 mmol/L (136-145)
[2019-08-25 04:44] LABS: Lactic Acid 1.3 mmol/L (0.5-2.2)
[2019-08-25] MEDS: Meropenem 500 MG in Sodium Chloride 0.9% 100 ML IVPB SCH ×2 (05:25→16:03)
--- NOTE | 2019-08-25 05:52 | PDOC.FM ---
- Subjective Subjective: Pt denies any events overnight or complaints this morning. She is A&O only to self upon waking this morning. Review of nursing notes shows no acute events overnight as well. - Objective Vital Signs & Weight: Vital Signs (12 hours) Temp Pulse Ox 08/25/19 03:42 99.2 F 08/24/19 23:26 98.6 F 08/24/19 20:08 99 Weight Weight 54.839 kg Most Recent Monitor Data Heart Rate from ECG 69 NIBP 115/51 NIBP BP-Mean 72 Respiration from ECG 14 SpO2 99 Result Diagrams: 08/25/19 03:47 08/25/19 03:47 Phys Exam - Physical Examination Constitutional: NAD HEENT: moist MMs Neck: full ROM Respiratory: clear to auscultation bilateral Cardiovascular: RRR Gastrointestinal: soft, non-tender, no distention Musculoskeletal: no edema, pulses present Neurological: moves all 4 limbs Deviation from normal: A&O to self Skin: no rash Dx/Plan - Plan Plan: Sepsis 2/2 UTI -WBC improved to 10.2, likely partially from resolution of hemoconcentration -s/p merem 1g and LR 1L in ER. Was switched to vanc and zosyn but pt has penicillin allergies - Resume meropenam -pending BCx/UCx -Procal uptrendin.1 -> 1.32 Anemia -Hx of nml hgb, no signs of active bleeding -WNL upon arrival but dropped form 12.4 -> 8.8 after IVF -Iron studies ordered -Continue to monitor Lactic acidosis - Resolved -LA 1.3 Dehydration in the setting of GREG vs. CKD -Cr improved from 2.19 -> 1.66 following IVF, BUN improved as well - 1.76 on last admission Mixed metabolic and respiratory alkalosis - Improving -pH 7.63/pCO2 17.8/ HCO3 18.3 -repeat later in the night: pH 7.57/ pCO2 26.4 / HCO3 23.6 -Holding megace -No tachypnea noted since admission Indeterminate troponins - stable -EKG unremarkable -Consistent w/ pt's baseline troponin, trended downwards Prolonged PT -INR 1.4, APTT 22.1, PT 17.5 Dementia -home meds CAD -home meds Normal pressure hydrocephalus with HOUSEHOLD APPLIANCES SERVICE TECHNICIAN shunt -Placed in 2017 -Brain CT: HOUSEHOLD APPLIANCES SERVICE TECHNICIAN shunt in place with ventriculomegaly that is unchanged from previous Code: Full PCP: Dr. Ellis Abx: Vanc & zosyn Dispo: Likely will be able to transition from IMCU to the floor later today. Pt improved with fluids overnight. Awaiting cultures. Clinically remained stable since admission however was likely very hemoconcentrated upon arrival considering dilution seen after IVF. Procal currently up trending but may be delayed response, will continue to trend. Looking for source of anemia. Will consider repeating ABG again today. Addendum - Attending - Attending Attestation Date/Time: 08/25/191805 I personally evaluated the patient and discussed the management with Dr. Baird I agree with the History, Examination, Assessment and Plan documented above with any addition or exceptions noted below - Sepsis secondary to UTI- Continue current abx. Await urine and blood cultures. 2) Dementia- stable. 3) Hypothyroidism- continue synthroid. .
[2019-08-25] MEDS: Lactated Ringer's 1,000 ML IV SCH ×2 (06:56→15:21)
[2019-08-25] MEDS ORDERED: Nystatin Powder 15 GM BOT TOP PRN (08:25)
[2019-08-25] MEDS ORDERED: Melatonin 3 MG TAB PO PRN (08:53)
[2019-08-25] MEDS ORDERED: Prevnar 13-Val Conj/PF 0.5 ML SYRINGE IM ONE (09:00)
[2019-08-25] MEDS: Aspirin Chewable 81 MG TAB PO SCH (10:44)
[2019-08-25] MEDS: Docusate 100 MG CAP PO SCH (10:44)
[2019-08-25] MEDS: Clopidogrel Bisulfate 75 MG TAB PO SCH (10:44)
[2019-08-25] MEDS: Citalopram 10 MG TAB PO SCH (10:44)
[2019-08-25] MEDS: Metoprolol Tartrate 25 MG TAB PO SCH ×2 (10:45→21:15)
[2019-08-25] MEDS: Heparin 5,000 UNITS/ML VIAL SC SCH ×3 (10:46→21:15)
[2019-08-25 12:08] LABS: Iron 22 ug/dL (50-170); Iron Binding Capacity, Total 114 mcg/dL (265-497)
[2019-08-25 12:25] LABS: Actual Bicarbonate (HCO3a) 21.2 mEq/L (22-28); Base Excess (BEa) -1.9 mEq/L (-2.0 to +3.0); Calcium, Ionized (arterial) 1.21 mmol/L (1.12-1.30); Carboxyhemoglobin (COHb) 0.9 gm% (0.0-3.0); Hemoglobin (Hb) 8.7 g/dL (12.0-16.0); O2 Tension (PaO2), arterial 77.1 mmHg (> 60.0); pH, Arterial 7.47 (7.35-7.45)
[2019-08-25 12:26] LABS: Puncture Site RR
[2019-08-25] MEDS: Ferrous Sulfate 325 MG TAB PO SCH (17:13)
[2019-08-25] MEDS: Donepezil HCl 10 MG TAB PO SCH (21:14)
[2019-08-25] MEDS: Atorvastatin Calcium 10 MG TAB PO SCH (21:16)
[2019-08-26] MEDS: Meropenem 500 MG in Sodium Chloride 0.9% 100 ML IVPB SCH (04:55)
[2019-08-26] MEDS: Lactated Ringer's 1,000 ML IV SCH ×3 (04:56→14:32)
[2019-08-26 05:38] LABS: #Eosinphils 0.2 thou/uL (0.0-0.7); #Lymphocytes 1.6 thou/uL (1.20-3.40); #Monocytes 0.8 thou/uL (0.11-0.59); #Neutrophils 7.5 thou/uL (1.40-6.50); %Basophils 0.3 % (0.0-1.0); %Eosinophils 2.2 % (0.0-10.0); %Lymphocytes 15.5 % (21.0-51.0); %Monocytes 7.8 % (0.0-10.0); %Neutrophils 74.2 % (42.0-75.0); Hemoglobin 9.7 g/dL (12.0-16.0); Mean Corpuscular HGB CONC 30.5 g/dL (32.0-36.0); Mean Corpuscular Hemoglobin 27.8 pg (27.0-31.0); Mean Corpuscular Volume 91.1 fL (78.0-98.0); Mean Platelet Volume 8.2 fL (7.4-10.4); Platelet Count 346 thou/uL (130-400); RBC Distribution Width 18.3 % (11.5-14.5); Red Blood Cell (RBC) Count 3.48 mill/uL (4.20-5.40); White Blood Cell (WBC) Count 10.1 thou/uL (4.8-10.8)
[2019-08-26] MEDS: Levothyroxine Sodium 50 MCG TAB PO SCH (05:44)
[2019-08-26 05:53] LABS: ALT (SGPT) 9 U/L (8-55); AST (SGOT) 13 U/L (5-34); Albumin 2.4 g/dL (3.4-4.8); Alkaline Phosphatase 47 U/L (40-110); Anion Gap 10 mmol/L (10-20); BUN (Urea Nitrogen) 19 mg/dL (9.8-20.1); Bilirubin, Total 0.2 mg/dL (0.2-1.2); Calc. Creatinine Clearance 28 mL/min (70-130); Calcium 8.6 mg/dL (7.8-10.44); Carbon Dioxide 24 mmol/L (23-31); Chloride 111 mmol/L (98-107); Estimated GFR-MDRD 40; Globulin 2.8 g/dL (2.4-3.5); Glucose 80 mg/dL (83-110); Potassium 3.7 mmol/L (3.5-5.1); Protein, Total 5.2 g/dL (6.0-8.3); Sodium 141 mmol/L (136-145)
--- NOTE | 2019-08-26 06:22 | PDOC.FM ---
- Subjective Subjective: Pt more alert this morning. no events overnight. states she has minimal appetite. discussed importance of her trying to eat/drink as much as she can tolerate. she expressed understanding. - Objective Vital Signs & Weight: Vital Signs (12 hours) Temp Pulse Resp BP BP Pulse Ox 08/26/19 04:32 97.8 F 87 18 144/71 H 100 08/25/19 20:20 98.3 F 93 18 108/61 98 08/25/19 20:00 98 08/25/19 18:23 77 16 99 Weight Admit Weight 54.839 kg Weight 54.839 kg Most Recent Monitor Data Heart Rate from ECG 79 NIBP 123/45 NIBP BP-Mean 71 Respiration from ECG 25 SpO2 100 I&O: 08/24/19 08/25/19 08/26/19 06:59 06:59 06:59 Intake Total 1136 620 Balance 1136 620 Result Diagrams: 08/26/19 05:16 08/26/19 05:16 Phys Exam - Physical Examination Constitutional: NAD HEENT: sclera anicteric No resp distress Gastrointestinal: soft, non-tender, no distention Musculoskeletal: no edema Psychiatric: normal affect Deviation from normal: Alert and oriented to person and partially place Dx/Plan - Plan Plan: Sepsis 2/2 UTI -WBC stable at 10.1 -Urine cultures + E.coli - resistant to TMP-SMX and levoquin, otherwise sensitive - Will continue meropenam for 3rd day and then transition to PO abx -Prelim blood cultures negative -Procal now down-trending to 0.92 Poor PO intake -Chronic problem for pt as was started on megace outpt -Suplena shakes added yesterday for supplementation -Will continue to encourage PO intake however pt's caloric need considering her limited activity is also quite low Anemia - mixed folate deficiency and ACD -Iron low, ferritin elevated, folate low -Fe and folate supplement added -After hemodilution yesterday pts hgb zulema to 9.7 Dehydration in the setting of GREG vs. CKD -Cr improved from 2.19 -> 1.66 -> 1.26 -Have essentially reached pt's baseline, will continue maintenance IVF at decreased rate until pt tolerating adequate PO hydration Mixed metabolic and respiratory alkalosis - Improving -pH 7.47 on last abg yesterday with increasing CO2 from previous -Morning labs show CO2 of 24, improved from previous -No further tachypneic episodes noted Indeterminate troponins - stable -EKG unremarkable -Consistent w/ pt's baseline troponin, trended downwards Prolonged PT -INR 1.4, APTT 22.1, PT 17.5 Dementia -home meds CAD -home meds Normal pressure hydrocephalus with LINER ASSEMBLER shunt -Placed in 2017 -Brain CT: LINER ASSEMBLER shunt in place with ventriculomegaly that is unchanged from previous Code: Full PCP: Dr. Ellis Abx: Vanc & zosyn Dispo: Metabolic derangements essentially resolved. Urine cultures resulted e. coli sensitive to current IV abx regimen. Will continue for another day and encourage PO intake prior to transition to PO abx likley tomorrow.
[2019-08-26] MEDS: Heparin 5,000 UNITS/ML VIAL SC SCH ×3 (09:53→21:02)
[2019-08-26] MEDS: Metoprolol Tartrate 25 MG TAB PO SCH ×2 (09:54→21:02)
[2019-08-26] MEDS: Docusate 100 MG CAP PO SCH (09:54)
[2019-08-26] MEDS: Folic Acid 1 MG TAB PO SCH (09:54)
[2019-08-26] MEDS: Clopidogrel Bisulfate 75 MG TAB PO SCH (09:54)
[2019-08-26] MEDS: Ferrous Sulfate 325 MG TAB PO SCH ×2 (09:54→17:07)
[2019-08-26] MEDS: Citalopram 10 MG TAB PO SCH (09:54)
[2019-08-26] MEDS: Aspirin Chewable 81 MG TAB PO SCH (09:54)
[2019-08-26] MEDS ORDERED: Gentamicin Sulfate 120 MG in Premix Bag 1 BAG IVPB SCH (14:00)
[2019-08-26] MEDS: Donepezil HCl 10 MG TAB PO SCH (21:02)
[2019-08-26] MEDS: Atorvastatin Calcium 10 MG TAB PO SCH (21:02)
[2019-08-27] MEDS: Lactated Ringer's 1,000 ML IV SCH ×2 (05:54→13:42)
[2019-08-27] MEDS: Levothyroxine Sodium 50 MCG TAB PO SCH (05:56)
--- NOTE | 2019-08-27 07:17 | PDOC.FM ---
- Subjective Subjective: Pt doing well this morning. no complaints. no events overnight. denies any dysuria, abdominal pain, n/v. - Objective Vital Signs & Weight: Vital Signs (12 hours) Temp Pulse Resp BP BP Pulse Ox 08/27/19 07:10 71 16 98 08/27/19 07:09 98.7 F 70 20 138/57 L 98 08/27/19 04:00 98.2 F 74 16 131/69 98 08/27/19 00:00 98.3 F 80 16 116/67 100 08/26/19 20:56 98.6 F 91 18 110/61 98 08/26/19 20:00 98 08/26/19 19:55 73 16 98 Weight Admit Weight 54.839 kg Weight 54.839 kg Most Recent Monitor Data Heart Rate from ECG 79 NIBP 123/45 NIBP BP-Mean 71 Respiration from ECG 25 SpO2 100 I&O: 08/26/19 08/27/19 08/28/19 06:59 06:59 06:59 Intake Total 620 340 Balance 620 340 Result Diagrams: 08/26/19 05:16 08/26/19 05:16 Phys Exam - Physical Examination Constitutional: NAD HEENT: moist MMs, sclera anicteric no respiratory distress Cardiovascular: RRR Gastrointestinal: soft, non-tender, no distention Musculoskeletal: no edema Neurological: moves all 4 limbs Deviation from normal: A&Ox1 - baseline Skin: no rash Dx/Plan - Plan Plan: Sepsis 2/2 UTI -WBC stable at 10.1 -Urine cultures + E.coli - resistant to TMP-SMX and levoquin, otherwise sensitive - Transitioned to gent yesterday IV, will continue IM as outpt for full regimen -Prelim blood cultures negative Poor PO intake -Chronic problem for pt as was started on megace outpt -Suplena shakes added yesterday for supplementation -Will continue to encourage PO intake however pt's caloric need considering her limited activity is also quite low 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 CKD - improved -Decreased IVF rate to 70 yesterday Prolonged PT -INR 1.4, APTT 22.1, PT 17.5 Dementia -home meds CAD -home meds Normal pressure hydrocephalus with AIR HOIST OPERATOR shunt -Placed in 2017 -Brain CT: AIR HOIST OPERATOR shunt in place with ventriculomegaly that is unchanged from previous Code: Full PCP: Dr. Ellis Abx: Vanc & zosyn Dispo: Metabolic derangements essentially resolved. Urine cultures resulted e. coli sensitive to current IV abx regimen. Pt tolerating gent well, will plan to transition to IM regimen and DC later today back to snf.
[2019-08-27] MEDS: Citalopram 10 MG TAB PO SCH (08:49)
[2019-08-27] MEDS: Ferrous Sulfate 325 MG TAB PO SCH (08:49)
[2019-08-27] MEDS: Clopidogrel Bisulfate 75 MG TAB PO SCH (08:49)
[2019-08-27] MEDS: Metoprolol Tartrate 25 MG TAB PO SCH (08:49)
[2019-08-27] MEDS: Docusate 100 MG CAP PO SCH (08:49)
[2019-08-27] MEDS: Aspirin Chewable 81 MG TAB PO SCH (08:50)
[2019-08-27] MEDS: Heparin 5,000 UNITS/ML VIAL SC SCH ×2 (08:50→14:48)
[2019-08-27] MEDS: Folic Acid 1 MG TAB PO SCH (08:50)
[2019-08-27 13:19] LABS: #Eosinphils 0.3 thou/uL (0.0-0.7); #Lymphocytes 1.6 thou/uL (1.20-3.40); #Monocytes 0.6 thou/uL (0.11-0.59); #Neutrophils 6.5 thou/uL (1.40-6.50); %Basophils 0.4 % (0.0-1.0); %Eosinophils 2.8 % (0.0-10.0); %Lymphocytes 17.6 % (21.0-51.0); %Monocytes 6.6 % (0.0-10.0); %Neutrophils 72.6 % (42.0-75.0); Hemoglobin 9.2 g/dL (12.0-16.0); Mean Corpuscular HGB CONC 31.3 g/dL (32.0-36.0); Mean Corpuscular Hemoglobin 28.4 pg (27.0-31.0); Mean Corpuscular Volume 90.6 fL (78.0-98.0); Mean Platelet Volume 8.2 fL (7.4-10.4); Platelet Count 361 thou/uL (130-400); RBC Distribution Width 18.1 % (11.5-14.5); Red Blood Cell (RBC) Count 3.24 mill/uL (4.20-5.40)
[2019-08-27 13:47] LABS: ALT (SGPT) 7 U/L (8-55); AST (SGOT) 16 U/L (5-34); Albumin 2.4 g/dL (3.4-4.8); Alkaline Phosphatase 53 U/L (40-110); Anion Gap 10 mmol/L (10-20); BUN (Urea Nitrogen) 13 mg/dL (9.8-20.1); Bilirubin, Total 0.3 mg/dL (0.2-1.2); Calc. Creatinine Clearance 35 mL/min (70-130); Calcium 8.3 mg/dL (7.8-10.44); Carbon Dioxide 25 mmol/L (23-31); Chloride 108 mmol/L (98-107); Estimated GFR-MDRD 52; Globulin 2.8 g/dL (2.4-3.5); Glucose 85 mg/dL (83-110); Protein, Total 5.2 g/dL (6.0-8.3); Sodium 139 mmol/L (136-145)
[2019-08-27 15:23] VITALS: BP 120/61; TEMP 98.4
--- NOTE | 2019-08-27 16:16 | PDOC.BPN ---
- Brief Progress Note Review of the patients serum gentamicin levels show that her serum concentrations are adequate for extended coverages. Due to this finding patient no longer will need IM antibiotics upon discharge and will have serum concentration levels adequate for treatment to complete her antibiotic regimen.
--- NOTE | 2019-08-28 03:08 | DIS ---
DATE OF ADMISSION: 08/24/2019 DATE OF DISCHARGE: 08/27/2019 ADMITTING ATTENDING: Rojas Lagos MD. DISCHARGE ATTENDING: Noni Benz MD. RESIDENT: Azar Baird DO. CONSULTS: Pulmonology, Dr. Jaxon Palmer. PROCEDURES: None. IMAGIN. Brain CT 08/24/2019. Impression: No acute intracranial process. Persistent ventriculomegaly despite the presence of ventriculoperitoneal shunt catheter. The appearance of the ventricular system has not changed. 2. Chest x-ray 08/24/2019. Impression: Diminished lung volumes due to poor inspiratory effort, atherosclerosis, small right right-sided pleural effusion. PRIMARY DIAGNOSES: 1. Sepsis secondary to urinary tract infection. 2. Dementia. 3. Mixed metabolic and respiratory alkalosis. 4. Lactic acidemia. SECONDARY DIAGNOSES: 1. Advanced dementia. 2. History of normal-pressure hydrocephalus. 3. Acute kidney injury. DISCHARGE MEDICATIONS: 1. Vitamin D3 1000 units daily. 2. Levothyroxine 50 mcg daily. 3. Cetirizine 10 mg daily. 4. Tylenol 650 mg p.o. q.4 hours p.r.n. 5. Flonase nasal spray 16 g, one spray each nares b.i.d. 6. Simvastatin 20 mg at bedtime. 7. Nexium 40 mg q.a.m. 8. Melatonin 10 mg p.r.n. 9. Colace 100 mg daily. 10. DuoNebs 3 mL neb q.i.d. p.r.n. 11. Namenda 10 mg b.i.d. 12. Citalopram 10 mg daily. 13. Plavix 75 mg daily. 14. Aricept 10 mg at bedtime. 15. Cozaar 100 mg daily. 16. Metoprolol tartrate 25 mg b.i.d. 17. Aspirin 81 mg daily. 18. Zofran 4 mg q.6 hours p.r.n. 19. Lasix 20 mg daily. 20. Nystatin 1 application topical b.i.d. p.r.n. 21. Feosol 325 mg b.i.d. 22. Folvite 1 mg daily. DISCONTINUED MEDICATION: Megace 5 mL p.o. b.i.d. HISTORY OF PRESENT ILLNESS AND HOSPITAL COURSE: An 84-year-old female with past medical history of advanced dementia and normal-pressure hydrocephalus, presented to the ED from her detention due to lethargy and tachypnea. Report from the detention was that the patient had slumped over in her wheelchair and was less arousable, so they transferred the patient to Emergency Department for evaluation of altered mental status. Report from detention denied any recent trauma or medication changes. The patient has been experiencing decreased appetite for some time now and was placed on Megace without much benefit. Initial workup in the emergency department showed the patient to have a white blood count of 16.1 with a UA positive for bacteria, white blood cells, leukocyte esterase and nitrates. The patient's lactic acid was found to be at 7.3. Initial ABG showed a pH of 7.63, pCO2 of 17.8, and a pO2 of 110.3. Review of the patient's other chemistries showed the patient to be experiencing a mixed respiratory metabolic alkalosis in the setting of a lactic acidemia. Due to the patient having borderline blood pressures in the emergency department, she was admitted to the [facility] for closer monitoring. Prior to admission, the patient had a head CT performed that showed no acute processes. Due to the patient's multiple drug allergies, she was started on meropenem for her urinary tract infection. The patient was also found to have an acute kidney injury with a creatinine of 2.17. Fluid resuscitation was initiated prior to admission. Throughout the patient's stay, her renal function improved with combinations of both IV and p.o. rehydration. Her mental status also rapidly improved after administration of antibiotics. Her white blood cell count downtrended. With the assistance of the pharmacist, Dr. Kayla Humphries, the patient was placed on monitored levels of gentamicin as a transition from meropenem. This was done after microbiology showed the patient's urine culture to be positive for E. coli that was sensitive with the exception of Levaquin and Bactrim. On last day of admission, the patient had rapid improvement in her admitting symptoms and had achieved adequate treatment of her urinary tract infection. The patient was discharged back to the detention and her PCP, Dr. Ellis was updated. DISCHARGE INSTRUCTIONS: Location: Nursing Facility. Activity: As tolerated. Diet: [place] thick liquids, NDD-2, with supplementation. Follow up with PCP, Dr. Ellis within 7 days. Job ID: [id number]
--- NOTE | 2019-08-29 04:04 | PQF ---
ANISHA SANTOS ANNA MD [id number] CLINICAL DOCUMENTATION CLARIFICATION FORM: POST DISCHARGE Addendum to original discharge summary date: ____ Late entry note date: __ DATE:08/29/2019 ATTN: Noni Antoine Please exercise your independent, professional judgment in responding to the clarification form. Clinical indicators are provided on the bottom of this form for your review Please check appropriate box(s): [ ] Protein Calorie Malnutrition: [ ] Mild [ ] Moderate [ ] Severe [ ] Other Malnutrition (please specify) __ [ ] Underweight without malnutrition [ ] Cachexia [ ] Other diagnosis [ ] Unable to determine In addition, please specify: Present on Admission (POA): [ ] Yes [ ] No [ ] Unable to determine CLINICAL INDICATORS - SIGNS / SYMPTOMS / LABS Nutritional assessment 08/24- BMI 20.1 Laboratory 08/24 -Serum total protein 5.6, Albumin 2.5, Globulin 3.1, Ratio 0.8 Nutritional assessment 08/24- Unsure weight loss Nutritional assessment 08/24- Poor appetite, decreased PO intake Nutritional assessment 08/24- calorie malnutrition RISK FACTORS H&P p1 08/23 84 year-old Female H&P p1 08/23 Vascular Dementia H&P p1 08/23 NPH H&P p2 08/23 CAD H&P p5 08/23 Sepsis H&P p5 08/23 Lactic acidosis with respiratory alkalosis H&P p6 08/23 GREG vs CKD ED Notes 08/23 GERD TREATMENT: Nutritional assessment 08/24- Dietary consult Nutritional assessment 08/24- Nutritional supplements Nutritional assessment 08/24- Weight monitoring Nutritional assessment 08/24- require appetite stimulant Nutritional assessment 08/24- Monitor Intake Nutritional assessment 08/26- Recommend Su[place]ena TID to aid with intake Moderate Malnutrition (in acute illness) Energy Intake: <75% of estimated energy requirement for > 7 days Weight Loss: 1-2%/1 week; 5%/ 1 month; 7.5%/3 months Other: mild body fat loss; mild muscle mass loss; mild fluid accumulation; Severe Malnutrition (in acute illness) Energy Intake: < 50% of estimated energy requirement for > 5 days Weight Loss: >1-2%/1 week; >5%/1 month; >7.5%/3 months Other: moderate body fat loss; moderate muscle mass loss; moderate- severe fluid accumulation; measurably reduced heel sprayer strength Moderate Malnutrition (in chronic illness) Energy Intake: <75% of estimated energy requirement for >1 month Weight Loss: 5%/1 month; 7.5%/3 months; 10%/6 months; 20%/1 year Other: mild body fat loss; mild muscle mass loss; mild fluid accumulation Severe Malnutrition (in chronic illness) Energy Intake: <75% of estimated energy requirement for >1 month Weight Loss: >5%/1 month; >7.5%/3 months; >10%/6 months; >20%/1 year Other: severe body fat loss; severe muscle mass loss; severe fluid accumulation ; measurably reduced heel sprayer strength (This form is maintained as a part of the permanent medical record) 2014 [employer]. All Rights Reserved [email or web address]
--- NOTE | 2019-08-29 04:05 | PQF ---
ANISHA SANTOS ANNA MD [id number] CLINICAL DOCUMENTATION CLARIFICATION FORM: POST DISCHARGE Addendum to original discharge summary date: ____ Late entry note date: __ DATE:08/29/2019 ATTN: Noni Antoine Please exercise your independent, professional judgment in responding to the clarification form. Clinical indicators are provided on the bottom of this form for your review Please check appropriate box(s): [ ] Encephalopathy: Etiology: [ ] Metabolic [ ] Toxic [ ] Septic [ ] Unspecified [ ] in the setting of underlying dementia [ ] Other (please specify) [ ] Transient Alteration of Awareness [ ] Other diagnosis [ ] Unable to determine In addition, please specify: Present on Admission (POA): [ ] Yes [ ] No [ ] Unable to determine For continuity of documentation, please document condition throughout progress notes and discharge summary. Thank You. CLINICAL INDICATORS - SIGNS / SYMPTOMS / LABS Laboratory 08/23 Hematology - WBC 16.1, Plt count 466, Neutrophils 83.2, band 25 Laboratory 08/23 Chemistry Sodium 146, Potassium 5.5, Angio Gap 34, Lactic Acid 7.3 ABG 08/23 pH 7.63, pCO2 17.8, pO2 110.3, O2 st 98.2%, Base Excess -0.8 Blood Culture 08/23 No growth at 48 hours Urine culture 08/23 Escherichia coli H&P p5 08/23 Dr BrownLactic acid blood increased with high anion gap metabolic acidosis, Respiratory alkalosis H&P p6 08/23 Dr Brown Sepsis likely 2/2 to UTI H&P p10 08/23 Dr Brown Present due to concern of altered mentation ED Notes 08/23 patient is confused RISK FACTORS H&P p1 08/23 84 year-old Female H&P p1 08/23 Vascular Dementia H&P p1 08/23 NPH H&P p2 08/23 CAD H&P p5 08/23 Sepsis H&P p5 08/23 Lactic acidosis with respiratory alkalosis H&P p6 08/23 GREG vs CKD TREATMENTS: MAY 15 IV Vancomycin 1 gm MAY 15 IV Meropenem 1 gm MAY 15 IV Lactated Ringer's 1L MAY 15 IV Gentamicin Sulfate 120 mg ABG ordered 08/23 Blood Culture ordered 08/23 Urine culture ordered 08/23 Collected 08/23 CT of brain (This form is maintained as a part of the permanent medical record) 2014 [employer]. All Rights Reserved [email or web address]
--- NOTE | 2019-08-30 13:02 | EKG ---
Test Reason : Blood Pressure : / mmHG Vent. Rate : 108 BPM Atrial Rate : 108 BPM P-R Int : 122 ms QRS Dur : 062 ms QT Int : 330 ms P-R-T Axes : 042 -40 -26 degrees QTc Int : 442 ms Sinus tachycardia Left axis deviation Moderate voltage criteria for LVH, may be normal variant Nonspecific ST abnormality Abnormal ECG Confirmed by JULIO GONSALEZ DO ([id number]), non linear editor MILANA TAYLOR ([id number]) on 08/30/2019 1:02:27 PM Referred By: Confirmed By:JULIO GONSALEZ DO
== END 2019-08-27 18:16 | DRG 872 ==
LOC: ERS 13:40 → IMCU/EMU 20:00 → T4-A 08-25 12:57
PROVIDERS: ADMIT Student in an Organized Health Care Education/Training Program; ATTEND Student in an Organized Health Care Education/Training Program
DX: A41.51 Sepsis due to Escherichia coli [E. coli] (principal); N39.0 Urinary tract infection, site not specified; N17.9 Acute kidney failure, unspecified; G91.2 (Idiopathic) normal pressure hydrocephalus; E87.4 Mixed disorder of acid-base balance; I25.10 Atherosclerotic heart disease of native coronary artery without angina pectoris; F01.50 Vascular dementia, unspecified severity, without behavioral disturbance, psychotic disturbance, mood disturbance, and anxiety; E86.0 Dehydration; I45.81 Long QT syndrome; E86.1 Hypovolemia; K21.9 Gastro-esophageal reflux disease without esophagitis; E03.9 Hypothyroidism, unspecified; E55.9 Vitamin D deficiency, unspecified; G47.00 Insomnia, unspecified; F41.9 Anxiety disorder, unspecified; F32.9 Major depressive disorder, single episode, unspecified; R79.89 Other specified abnormal findings of blood chemistry; D52.9 Folate deficiency anemia, unspecified; D63.1 Anemia in chronic kidney disease; N18.9 Chronic kidney disease, unspecified; I12.9 Hypertensive chronic kidney disease with stage 1 through stage 4 chronic kidney disease, or unspecified chronic kidney disease; K59.00 Constipation, unspecified; Z88.1 Allergy status to other antibiotic agents; Z88.5 Allergy status to narcotic agent; Z88.0 Allergy status to penicillin; Z88.2 Allergy status to sulfonamides; Z79.899 Other long term (current) drug therapy; Z79.51 Long term (current) use of inhaled steroids; Z79.02 Long term (current) use of antithrombotics/antiplatelets; Z79.890 Hormone replacement therapy; Z98.2 Presence of cerebrospinal fluid drainage device; Z87.440 Personal history of urinary (tract) infections
CPT/HCPCS: 36415; 36416; 51701; 70450; 71045; 80053; 80170; 80307; 81003; 81015; 82010; 82550; 82553; 82607; 82728; 82746; 82805; 83540; 83550; 83605; 84145; 84443; 84484; 85025; 85610; 85730; 87040; 87077; 87086; 87186; 93005; 94640; 94760; 96360; 96361; 96365; J1580; J1644; J2185; J3370; J3490; J7620

== ENCOUNTER 2019-09-01 12:26 | Inpatient (IN) | payer MEDICARE, OTHER ==
[2019-09-01] MEDS ORDERED: Azithromycin 500 MG VIAL ONE (13:28)
[2019-09-01 13:36] LABS: #Eosinphils 0.2 thou/uL (0.0-0.7); #Lymphocytes 0.9 thou/uL (1.20-3.40); #Monocytes 0.7 thou/uL (0.11-0.59); #Neutrophils 14.5 thou/uL (1.40-6.50); %Lymphocytes 5.3 % (21.0-51.0); %Monocytes 4.2 % (0.0-10.0); %Neutrophils 89.5 % (42.0-75.0); Hemoglobin 10.5 g/dL (12.0-16.0); Mean Corpuscular HGB CONC 31.1 g/dL (32.0-36.0); Mean Corpuscular Hemoglobin 28.2 pg (27.0-31.0); Mean Corpuscular Volume 90.5 fL (78.0-98.0); Platelet Count 469 thou/uL (130-400); Red Blood Cell (RBC) Count 3.73 mill/uL (4.20-5.40); White Blood Cell (WBC) Count 16.2 thou/uL (4.8-10.8)
[2019-09-01 13:55] LABS: ALT (SGPT) 11 U/L (8-55); AST (SGOT) 16 U/L (5-34); Albumin 2.7 g/dL (3.4-4.8); Alkaline Phosphatase 60 U/L (40-110); Anion Gap 18 mmol/L (10-20); BUN (Urea Nitrogen) 15 mg/dL (9.8-20.1); Bilirubin, Total 0.3 mg/dL (0.2-1.2); CK (CPK) 29 U/L (29-168); Calc. Creatinine Clearance 0 mL/min (70-130); Calcium 8.4 mg/dL (7.8-10.44); Carbon Dioxide 24 mmol/L (23-31); Chloride 101 mmol/L (98-107); Estimated GFR-MDRD 43; Globulin 2.8 g/dL (2.4-3.5); Glucose 118 mg/dL (83-110); Potassium 3.8 mmol/L (3.5-5.1); Protein, Total 5.5 g/dL (6.0-8.3); Sodium 139 mmol/L (136-145)
--- NOTE | 2019-09-01 14:13 | RAD ---
PORTABLE CHEST 1 VIEW: DATE: 09/01/2019. TIME: 12:27 PM. HISTORY: Loss of appetite, vomiting. Pneumonia. COMPARISON: 08/24/2019. FINDINGS/IMPRESSION: The heart size is stable. There is consolidation at the left lung base with accompanying pleural eff usions. NO pneumothoraces are seen. Findings are suspicious for pneumonia. POS: [facility]
[2019-09-01 14:17] LABS: CKMB 1.6 ng/mL (0-6.6)
--- NOTE | 2019-09-01 14:55 | PDOC.FPRHP ---
- History of Present Illness Chief Complaint: Pneumonia, hematemesis History of Present Illness: 84yo female sent over by Dr Ellis after she had a televisit earlier today. There was concern for clinical worsening of her pneumonia despite 2 days of Azithromycin. She began to have dark hemoptysis today. Denies fevers, chills, abdominal pain, blood in stool. Had a CXR with bilateral opacities and WBC 13.1. She was recently admitted for Sepsis 2/2 UTI and treated with Gentamicin and Meropenem. In the ER she was noted to be tachypneic but high 90's on RA. No known COVID positive contacts. ED Course: 1L NS, Azithromycin - Allergies/Adverse Reactions Allergies Allergy/AdvReac Type Severity Reaction Status Date / Time cephalexin monohydrate Allergy Verified 09/01/19 16:58 [From Keflex] codeine Allergy Verified 09/01/19 16:58 levofloxacin [From Levaquin] Allergy Verified 09/01/19 16:58 Penicillins Allergy Verified 09/01/19 16:58 Sulfa (Sulfonamide Allergy Verified 09/01/19 16:58 Antibiotics) - Home Medications Medication Instructions Recorded Confirmed Type Cholecalciferol (Vitamin D3) 1 capsule PO DAILY 12/28/13 09/01/19 History [Vitamin D3] Levothyroxine Sodium [Synthroid] 50 mcg PO DAILY 12/28/13 09/01/19 History Cetirizine HCl [All Day Allergy] 10 mg PO DAILY 03/02/16 09/01/19 History Acetaminophen [Tylenol Regular 650 mg PO Q4HR PRN 03/07/16 09/01/19 History Strength] Fluticasone Propionate [Flonase 2 spray EA NARE DAILY 03/07/16 09/01/19 History Nasal [place]] Calcium Carbonate/Vitamin D3 1 tab PO DAILY 06/11/17 09/01/19 History [Calcium 600-Vit D3 200 Tablet] Docusate [Colace] 100 mg PO DAILY 06/11/17 09/01/19 History Esomeprazole Magnesium [NexIUM] 40 mg PO QAM-WM 06/11/17 09/01/19 History Melatonin 10 mg PO HS PRN 06/11/17 09/01/19 History Simvastatin [Zocor] 20 mg PO HS 06/11/17 09/01/19 History Ipratropium/Albuterol Sulfate 3 ml NEB QID 30 Days neb 06/15/17 09/01/19 Rx [DuoNeb] Memantine HCl [Namenda] 10 mg PO BID 07/21/17 09/01/19 History Aspirin Chewable [Aspirin Chewable 81 mg PO DAILY 07/25/17 09/01/19 History Tablet] Citalopram [CeleXA] 10 mg PO DAILY #30 tab 07/25/17 09/01/19 Rx Clopidogrel Bisulfate [Plavix] 75 mg PO DAILY #30 tablet 07/25/17 09/01/19 Rx Donepezil HCl [Aricept] 10 mg PO HS #30 tab 07/25/17 09/01/19 Rx Losartan Potassium [Cozaar] 100 mg PO DAILY #30 tablet 07/25/17 09/01/19 Rx Metoprolol Tartrate 25 mg PO BID #60 tablet 07/25/17 09/01/19 Rx Furosemide [Lasix] 20 mg PO DAILY 08/25/19 09/01/19 History Nystatin [Mycostatin Powder] 1 applic TOP BID PRN 08/25/19 09/01/19 History Ondansetron HCl [Zofran] 4 mg PO Q6HR PRN 08/25/19 09/01/19 History Ferrous Sulfate [Feosol] 325 mg PO BID-WM tab 08/27/19 09/01/19 Rx Folic Acid [Folvite] 1 mg PO DAILY tab 08/27/19 09/01/19 Rx Meclizine HCl [Motion Sickness 25 mg PO PRN PRN 09/01/19 09/01/19 History Relief] - History PMHx: Normal Pressure Hydrocephalus, CAD, Hypothyroidism, HTN, Vascular Dementia , GERD, Anemia, Insomnia, Anxiety/depression PSHx: Shunt Placement, Heart Catheterization FHx: Mother (DM2) Social: Denies alcohol, drug and tobacco use. - Review of Systems General: denies: fever/chills, weight/appetite/sleep changes Eyes: denies: vision changes ENT: denies: nasal congestion, rhinorrhea Respiratory: reports: cough. denies: congestion, shortness of breath Cardiovascular: reports: chest pain. denies: edema Gastrointestinal: reports: vomiting, other (hematemesis). denies: nausea, abdominal pain Genitourinary: denies: dysuria Skin: denies: rashes, lesions Musculoskeletal: denies: pain, tenderness Neurological: reports: weakness. denies: numbness - Vital signs BP: 147/40 HR: 80 RR: 28 Tmax: 98.5 Pox: 99% on RA Wt: 65kg - Physical Exam Constitutional: NAD, awake, alert and oriented, well developed HEENT: normocephalic and atraumatic, EOMI, conjunctiva clear, grossly normal hearing, MMM, oropharynx clear, other (conjunctival pallor) Neck: supple, trachea midline Heart: RRR, no edema Lungs: other (bilateral rhonchi. Expiratory wheezing) Abdomen: soft, bowel sounds present Musculoskeletal: normal structure Neurological: no focal deficit Skin: no rash/lesions, good turgor, capillary refill <2 seconds Psychiatric: normal mood and affect FMR H&P: Results - Labs Result Diagrams: 09/02/19 04:46 09/02/19 04:46 Lab results: WBC 16.2 thou/uL (4.8-10.8) H 09/01/19 13:25 Hgb 10.5 g/dL (12.0-16.0) L 09/01/19 13:25 Hct 33.7 % (36.0-47.0) L 09/01/19 13:25 MCV 90.5 fL (78.0-98.0) 09/01/19 13:25 Plt Count 469 thou/uL (130-400) H 09/01/19 13:25 Neutrophils % 89.5 % (42.0-75.0) H 09/01/19 13:25 Sodium 139 mmol/L (136-145) 09/01/19 13:25 Potassium 3.8 mmol/L (3.5-5.1) 09/01/19 13:25 Chloride 101 mmol/L (98-107) 09/01/19 13:25 Carbon Dioxide 24 mmol/L (23-31) 09/01/19 13:25 BUN 15 mg/dL (9.8-20.1) 09/01/19 13:25 Creatinine 1.19 mg/dL (0.6-1.1) H 09/01/19 13:25 Glucose 118 mg/dL (83-110) H 09/01/19 13:25 Lactic Acid 1.9 mmol/L (0.5-2.2) 09/01/19 13:25 Calcium 8.4 mg/dL (7.8-10.44) 09/01/19 13:25 Total Bilirubin 0.3 mg/dL (0.2-1.2) 09/01/19 13:25 AST 16 U/L (5-34) 09/01/19 13:25 ALT 11 U/L (8-55) 09/01/19 13:25 Alkaline Phosphatase 60 U/L (40-110) 09/01/19 13:25 Creatine Kinase 29 U/L (29-168) 09/01/19 13:25 CK-MB (CK-2) 1.6 ng/mL (0-6.6) 09/01/19 13:25 Serum Total Protein 5.5 g/dL (6.0-8.3) L 09/01/19 13:25 Albumin 2.7 g/dL (3.4-4.8) L 09/01/19 13:25 - EKG Interpretation EK lead EKG shows normal sinus rhythm, Rate (beats per minute): 80, Interpretation:, Conduction normal, ST segments normal, T waves normal, [place], left, Clinical impression:, No acute findings for ischemia at this time. - Radiology Interpretation Chest x-ray Status: image reviewed by me, report reviewed by me Additional comment: interval progression in bilateral patchy infiltrates FMR H&P: A/P - Plan 84yo female presents with Sepsis 2/2 pneumonia - Leukocytosis, tachypnea - Has received 2 days Azithro. Given in ED + 1L NS. - LA 1.9. Urine, Bld Cx pending. - Will transition to Meropenem due to patient allergies and clinically worsening on azithromycin outpt - Ordered procal, UA & Cx, COVID test to be done in ED. Isolation precautions - LR @100. Strict I&Os, daily wts. Adjust according to urine output. Hold Lasix as pt appears mildly dehydrated - Admit to medical. Hemoptysis - Likely 2/2 pneumonia. Wells: 1 - Also likely hemoconcentrated, monitor CBC after fluid resuscitation. - Protonix 40mg - NPO for now. Once able to tolerate diet she requires thickened liquids and mechanical soft diet. - Hold plavix (for stent years ago) until hematemesis resolves. Normocytic Anemia - Peripheral smear pending Physical Deconditioning - PT/OT once COVID test results GREG - Cr 1.19. Elevated from baseline. Likely prerenal. Continue to monitor with AM BMP. IVF as above. Leukocytosis - Likely 2/2 pneumonia and hemoconcentration Thrombocytosis - Likely AFR and hemoconcentration Vascular Dementia, at baseline CAD - Continue home meds PCP: Caleb IVF: LR @100 ml/hr Code Status: DNR. Discussed with Daughter who felt this best represented patients wishes DVT ppx: SCDs Dispo: Expected LOS >48hrs for sepsis FMR H&P: Upper Level - Plan Date/Time: 09/01/19 8019 I, [], have evaluated this patient and agree with findings/plan as outlined by internal control consultant resident. Pertinent changes/additions are listed here. Addendum - Attending - Attending Attestation Date/Time: 09/02/19 5112 I personally discussed the management with Dr. Olmstead. I agree with the History, Examination, Assessment and Plan documented above with any addition or exceptions noted below.
[2019-09-01] MEDS ORDERED: Ondansetron PF 4 MG/2 ML Vial IVP PRN (15:00)
[2019-09-01] MEDS ORDERED: Acetaminophen 325 MG TAB PO PRN ×2 (15:00→15:26)
[2019-09-01] MEDS ORDERED: Nystatin Powder 15 GM BOT TOP PRN (15:26)
[2019-09-01] MEDS ORDERED: Melatonin 3 MG TAB PO PRN (16:08)
[2019-09-01] MEDS ORDERED: Ondansetron ODT 4 MG TAB PO PRN (16:09)
[2019-09-01] MEDS: Lactated Ringer's 1,000 ML IV SCH (18:08)
[2019-09-01] MEDS: Ferrous Sulfate 325 MG TAB PO SCH (18:08)
[2019-09-01] MEDS: Metoprolol Tartrate 25 MG TAB PO SCH (20:01)
[2019-09-01] MEDS: Donepezil HCl 10 MG TAB PO SCH (20:02)
[2019-09-01] MEDS: Atorvastatin Calcium 10 MG TAB PO SCH (20:02)
[2019-09-01] MEDS ORDERED: Meropenem 1 GM in Sodium Chloride 0.9% 100 ML IVPB SCH (22:00)
[2019-09-01] MEDS: MEROPENEM 1 GM/50 ML 1 GM in Premix Bag 1 BAG IVPB SCH (22:37)
[2019-09-01] MEDS: Albuterol 200 PUFF (6.7GM INHALER) INH SCH (22:38)
[2019-09-01] MEDS: Pantoprazole 40 MG VIAL IVP SCH (22:38)
[2019-09-01] MEDS: Fluticasone Propionate Nasal Spray 16 gm Bottle NASAL SCH (22:38)
[2019-09-02] MEDS: Lactated Ringer's 1,000 ML IV SCH ×3 (04:19→20:14)
[2019-09-02 04:58] LABS: #Basophils 0.1 thou/uL (0.0-0.2); #Eosinphils 0.1 thou/uL (0.0-0.7); #Monocytes 0.9 thou/uL (0.11-0.59); #Neutrophils 10.6 thou/uL (1.40-6.50); %Basophils 0.7 % (0.0-1.0); %Eosinophils 0.9 % (0.0-10.0); %Lymphocytes 14.3 % (21.0-51.0); %Monocytes 6.4 % (0.0-10.0); %Neutrophils 77.7 % (42.0-75.0); Hemoglobin 9.8 g/dL (12.0-16.0); Mean Corpuscular HGB CONC 30.2 g/dL (32.0-36.0); Mean Corpuscular Hemoglobin 27.8 pg (27.0-31.0); Mean Platelet Volume 7.7 fL (7.4-10.4); Platelet Count 404 thou/uL (130-400); Red Blood Cell (RBC) Count 3.53 mill/uL (4.20-5.40); White Blood Cell (WBC) Count 13.7 thou/uL (4.8-10.8)
[2019-09-02 04:58] LABS: Bilirubin Negative (Negative); Blood, Urine Negative (Negative); Clarity Clear (Clear); Glucose, Urine (Dipstick) Normal (Negative); Leukocyte Negative Leu/uL (Negative); Nitrite Negative (Negative); Protein, Urine (Dipstick) 30 mg/dL (Neg-Trace); RBC/HPF 0-3 HPF (0-3); Squamous Epithelial 0-3 HPF (0-3); WBC/HPF 0-3 HPF (0-3)
[2019-09-02 05:22] LABS: Anion Gap 16 mmol/L (10-20); BUN (Urea Nitrogen) 14 mg/dL (9.8-20.1); Calc. Creatinine Clearance 35 mL/min (70-130); Calcium 8.3 mg/dL (7.8-10.44); Carbon Dioxide 22 mmol/L (23-31); Chloride 104 mmol/L (98-107); Estimated GFR-MDRD 50; Glucose 74 mg/dL (83-110); Potassium 3.5 mmol/L (3.5-5.1); Sodium 138 mmol/L (136-145)
[2019-09-02 05:25] LABS: Bacteria/HPF 1+ HPF (None Seen)
[2019-09-02 05:33] LABS: Urine Culture Reflex Yes Yes
[2019-09-02] MEDS: MEROPENEM 1 GM/50 ML 1 GM in Premix Bag 1 BAG IVPB SCH ×3 (06:11→20:28)
[2019-09-02] MEDS: Levothyroxine Sodium 50 MCG TAB PO SCH (06:12)
--- NOTE | 2019-09-02 07:24 | PDOC.FM ---
- Subjective Subjective: Pt denies any complaints at this time. - Objective MAR Reviewed: Yes Vital Signs & Weight: Vital Signs (12 hours) Temp Pulse Resp BP Pulse Ox 09/02/19 03:00 97.7 F 74 16 143/61 H 93 L 09/01/19 20:00 94 L 09/01/19 19:55 97.1 F L 83 18 136/62 95 Weight Weight 57.198 kg I&O: 09/01/19 09/02/19 09/03/19 06:59 06:59 06:59 Intake Total 1200 Output Total 240 Balance 960 Result Diagrams: 09/02/19 04:46 09/02/19 04:46 Phys Exam - Physical Examination Constitutional: NAD AAO to person only HEENT: PERRLA, moist MMs Neck: no JVD Respiratory: no wheezing, clear to auscultation bilateral (anteriorly only, pt unable to sit up or roll) Cardiovascular: RRR, no significant murmur Gastrointestinal: soft, non-tender, no distention, positive bowel sounds Musculoskeletal: no edema, pulses present Neurological: moves all 4 limbs Skin: cap refill <2 seconds Dx/Plan (1) Pneumonia Code(s): J18.9 - PNEUMONIA, UNSPECIFIED ORGANISM Status: Acute - Plan Plan: Sepsis, improving PNA, failed Azithromycin outpt -Meropenem -Covid pending -CXR shows LLL consolidations -Procal indeterminate Hemotysis -Likely 2/2 PNA -NPO -Plavix held -Low PE probability -Continues to have favorable O2 saturations Normocytic anemia -Pending peripheral smear -RDW is elevated, pending folate, B12, and iron studies Physical deconditioning -PT/OT GREG, improving -Continue fluids Leukocytosis, improving Thrombocytosis -Mild improvement Vascular Dementia, at baseline CAD -Continue home simvastatin -Holding plavix Addendum - Attending - Attending Attestation Date/Time: 09/02/19 1132 I personally evaluated the patient and discussed the management with Dr. Dennison. I agree with the History, Examination, Assessment and Plan documented above with any addition or exceptions noted below. Patient overall stable, not requiring supplemental O2. Suspect this may be bronchitis type picture. Awaiting COVID swab. Continue abx for now. Will eventually transition back to [facility].
[2019-09-02] MEDS ORDERED: Prevnar 13-Val Conj/PF 0.5 ML SYRINGE IM ONE (09:00)
[2019-09-02] MEDS: Albuterol 200 PUFF (6.7GM INHALER) INH SCH ×4 (09:32→19:04)
[2019-09-02] MEDS: Docusate 100 MG CAP PO SCH (09:35)
[2019-09-02] MEDS: Aspirin Chewable 81 MG TAB PO SCH (09:35)
[2019-09-02] MEDS: Ferrous Sulfate 325 MG TAB PO SCH ×2 (09:35→17:46)
[2019-09-02] MEDS: Folic Acid 1 MG TAB PO SCH (09:36)
[2019-09-02] MEDS: Loratadine 10 MG TAB PO SCH (09:36)
[2019-09-02] MEDS: Fluticasone Propionate Nasal Spray 16 gm Bottle NASAL SCH ×2 (09:36→20:16)
[2019-09-02] MEDS: Losartan 25 MG TAB PO SCH (09:36)
[2019-09-02] MEDS: Citalopram 10 MG TAB PO SCH (09:36)
[2019-09-02] MEDS: Calcium Carbonate 600 MG + Vit D TAB PO SCH (09:36)
[2019-09-02] MEDS: Pantoprazole 40 MG VIAL IVP SCH ×2 (09:37→20:25)
[2019-09-02] MEDS: Metoprolol Tartrate 25 MG TAB PO SCH ×2 (09:37→20:15)
[2019-09-02 11:26] LABS: Iron 17 ug/dL (50-170); Iron Binding Capacity, Total 109 mcg/dL (265-497)
[2019-09-02 11:52] LABS: Ferritin 960.47 ng/mL (10-291)
[2019-09-02 13:50] LABS: SARS-CoV-2 MS2 Positive; SARS-CoV-2 N Gene Negative; SARS-CoV-2 S Gene Negative; SARS-CoV-2 orf1ab Negative
[2019-09-02 16:08] VITALS: BMI 20.9
[2019-09-02] MEDS: Atorvastatin Calcium 10 MG TAB PO SCH (20:15)
[2019-09-02] MEDS: Donepezil HCl 10 MG TAB PO SCH (20:16)
[2019-09-03] MEDS: MEROPENEM 1 GM/50 ML 1 GM in Premix Bag 1 BAG IVPB SCH ×2 (05:25→15:06)
[2019-09-03] MEDS: Levothyroxine Sodium 50 MCG TAB PO SCH (05:25)
--- NOTE | 2019-09-03 05:53 | PDOC.FM ---
- Subjective Subjective: NAEO. Pt states she is doing well. She has no complaints this morning. - Objective MAR Reviewed: Yes Vital Signs & Weight: Vital Signs (12 hours) Temp Pulse Resp BP Pulse Ox 09/03/19 05:38 96 09/02/19 19:28 97.5 F L 77 18 122/50 L 96 Weight Admit Weight 57.198 kg Weight 57.198 kg I&O: 09/01/19 09/02/19 09/03/19 06:59 06:59 06:59 Intake Total 1200 570 Output Total 240 200 Balance 960 370 Result Diagrams: 09/03/19 08:14 09/03/19 06:49 Phys Exam - Physical Examination Constitutional: NAD HEENT: moist MMs Neck: no JVD Respiratory: no wheezing, clear to auscultation bilateral Cardiovascular: RRR, no significant murmur Gastrointestinal: soft, non-tender, no distention, positive bowel sounds Musculoskeletal: pulses present, edema present (trace) Neurological: normal sensation, moves all 4 limbs Deviation from normal: Oriented to person Skin: cap refill <2 seconds Dx/Plan (1) Pneumonia Code(s): J18.9 - PNEUMONIA, UNSPECIFIED ORGANISM Status: Acute - Plan Plan: Sepsis, resolved PNA, failed Azithromycin outpt -Meropenem -Covid negative -CXR shows LLL consolidations, will repeat today -Procal neg -Likely DC today or tomorrow Hemotysis -Likely 2/2 PNA -Plavix held -Low PE probability -Continues to have favorable O2 saturations Normocytic anemia -Pending peripheral smear -RDW is elevated, pending folate, B12, and iron studies Physical deconditioning -PT/OT GREG, improving -Continue fluids Leukocytosis, improving Thrombocytosis -Mild improvement Vascular Dementia, at baseline CAD -Continue home simvastatin -Resuming home plavix Addendum - Attending - Attending Attestation Date/Time: 09/03/19 1009 I personally evaluated the patient and discussed the management with Dr. Dennison. I agree with the History, Examination, Assessment and Plan documented above with any addition or exceptions noted below. Patient doing well. No requirement of O2, no fevers. Will repeat CXR to ensure no worsening or new developments, but likely stable for transfer back to SNF today. PCP updated.
[2019-09-03 07:19] LABS: Anion Gap 15 mmol/L (10-20); BUN (Urea Nitrogen) 11 mg/dL (9.8-20.1); Calc. Creatinine Clearance 46 mL/min (70-130); Calcium 7.9 mg/dL (7.8-10.44); Carbon Dioxide 21 mmol/L (23-31); Chloride 105 mmol/L (98-107); Estimated GFR-MDRD 68; Glucose 66 mg/dL (83-110); Potassium 3.9 mmol/L (3.5-5.1); Sodium 137 mmol/L (136-145)
[2019-09-03] MEDS: Albuterol 200 PUFF (6.7GM INHALER) INH SCH ×3 (07:36→14:09)
[2019-09-03 08:25] LABS: Hemoglobin 9.7 g/dL (12.0-16.0); Mean Corpuscular HGB CONC 30.6 g/dL (32.0-36.0); Mean Corpuscular Hemoglobin 28.1 pg (27.0-31.0); Mean Platelet Volume 7.7 fL (7.4-10.4); Platelet Count 384 thou/uL (130-400); RBC Distribution Width 18.2 % (11.5-14.5); Red Blood Cell (RBC) Count 3.44 mill/uL (4.20-5.40); White Blood Cell (WBC) Count 13.5 thou/uL (4.8-10.8)
[2019-09-03] MEDS ORDERED: Furosemide 20 MG TAB PO SCH (09:00)
[2019-09-03] MEDS ORDERED: Clopidogrel Bisulfate 75 MG TAB PO SCH (09:00)
[2019-09-03] MEDS: Calcium Carbonate 600 MG + Vit D TAB PO SCH (09:39)
[2019-09-03] MEDS: Ferrous Sulfate 325 MG TAB PO SCH ×2 (09:39→17:16)
[2019-09-03] MEDS: Aspirin Chewable 81 MG TAB PO SCH (09:39)
[2019-09-03] MEDS: Pantoprazole 40 MG VIAL IVP SCH (09:40)
[2019-09-03] MEDS: Folic Acid 1 MG TAB PO SCH (09:40)
[2019-09-03] MEDS: Metoprolol Tartrate 25 MG TAB PO SCH (09:40)
[2019-09-03] MEDS: Losartan 25 MG TAB PO SCH (09:40)
[2019-09-03] MEDS: Docusate 100 MG CAP PO SCH (09:40)
[2019-09-03] MEDS: Loratadine 10 MG TAB PO SCH (09:40)
[2019-09-03] MEDS: Fluticasone Propionate Nasal Spray 16 gm Bottle NASAL SCH (09:41)
[2019-09-03] MEDS: Citalopram 10 MG TAB PO SCH (09:44)
--- NOTE | 2019-09-03 13:33 | RAD ---
EXAM: Single view of the chest HISTORY: Pneumonia COMPARISON: 09/01/2019 FINDINGS: Single view of the chest shows a normal sized cardiomediastinal silhouette. Airspace opacit y seen in the left lower lobe. There may be a small left pleural effusion. The bones are unremarkable. IMPRESSION: Left lower lobe infiltrate
[2019-09-03 15:13] LABS: Hematocrit 27.6 % (34.0-46.6); RBC Folate Test Component 1634 ng/mL (>498)
[2019-09-03 15:59] VITALS: BP 107/70; TEMP 98.1
== END 2019-09-03 17:35 | DRG 871 ==
LOC: ERS 12:26 → 2SW 14:28 → T4-A 09-02 16:12
PROVIDERS: ADMIT Student in an Organized Health Care Education/Training Program; ATTEND Student in an Organized Health Care Education/Training Program
DX: A41.9 Sepsis, unspecified organism (principal); J18.9 Pneumonia, unspecified organism; R04.2 Hemoptysis; N17.9 Acute kidney failure, unspecified; Z20.828 Contact with and (suspected) exposure to other viral communicable diseases; E03.9 Hypothyroidism, unspecified; I10 Essential (primary) hypertension; K21.9 Gastro-esophageal reflux disease without esophagitis; G47.33 Obstructive sleep apnea (adult) (pediatric); F41.9 Anxiety disorder, unspecified; F32.9 Major depressive disorder, single episode, unspecified; F01.50 Vascular dementia, unspecified severity, without behavioral disturbance, psychotic disturbance, mood disturbance, and anxiety; I25.10 Atherosclerotic heart disease of native coronary artery without angina pectoris; E55.9 Vitamin D deficiency, unspecified; D47.3 Essential (hemorrhagic) thrombocythemia; D64.9 Anemia, unspecified; Z88.5 Allergy status to narcotic agent; Z88.0 Allergy status to penicillin; Z88.2 Allergy status to sulfonamides; Z88.1 Allergy status to other antibiotic agents; Z79.899 Other long term (current) drug therapy; Z79.890 Hormone replacement therapy; Z79.82 Long term (current) use of aspirin
CPT/HCPCS: 36415; 36416; 71045; 80048; 80053; 81001; 82550; 82553; 82607; 82728; 82747; 83540; 83550; 83605; 84145; 84484; 85025; 85027; 85060; 87040; 87086; 87635; 90471; 90670; 93005; 94760; 96365; C9113; G0009; J0456; J2185; U0003